=== PATIENT | female | born 1960 | race Caucasian/White ===

== ENCOUNTER 2016-12-04 19:11 | Emergency (ER) | payer MEDICARE ==
[2016-12-04 19:15] VITALS: BP 141/89; PULSE 96; TEMP 98; BMI 23.3
[2016-12-04] MEDS ORDERED: AZITHROMYCIN 250 MG TABLET PO ONE (20:24)
[2016-12-04] MEDS ORDERED: AZITHROMYCIN 250 MG TABLET ONE (20:25)
--- NOTE | 2016-12-04 20:29 | PDOC ---
History of Present Illness - General Chief Complaint: Pain Stated Complaint: PAIN. ACUTE Time Seen by Provider: 12/04/16 19:55 History Source: Patient Exam Limitations: No Limitations - History of Present Illness Initial Comments: 12/04/16 22:27 My chief complaint: Left ear pain left side of face pain and left tongue pain History of present illness: Patient is a 56-year-old female with a history of CAD, asthma, COPD, GERD, anxiety and depression and fnn-ufkuupx-mxmcednte diabetes here today complaining of left ear pain, left side of face pain and left tonsil pain for weeks patient is unable to give specific timing for her complaints. Patient also reports having TMJ. She reports that she really needs something strong for pain. She denies any difficulty swallowing or any difficulty breathing. Timing/Duration: getting worse Severity: moderate Associated Symptoms: reports: other (left tongue pain, left ear pain, ) Past History - Past Medical History Allergies/Adverse Reactions: Allergies Allergy/AdvReac Type Severity Reaction Status Date / Time naproxen Allergy Severe Swelling Verified 12/04/16 19:15 soy Allergy Verified 12/04/16 19:15 Sulfa (Sulfonamide Allergy Rash Verified 12/04/16 19:15 Antibiotics) honey bees Allergy Mild Swelling Uncoded 12/04/16 19:15 shrimp Allergy Mild hives, Uncoded 12/04/16 19:15 itching WALNUTS Allergy Unknown Uncoded 12/04/16 19:15 seafood Allergy get sick Uncoded 12/04/16 19:15 Home Medications: Ambulatory Orders Lisinopril [Prinivil] 20 mg PO DAILY 12/06/14 Sitagliptin Phos/Metformin HCl [Janumet 50-500 mg Tablet] 1 tab PO BID 12/06/14 Canagliflozin [Invokana] 300 mg PO DAILY 09/26/15 Acetaminophen 1,000 mg PO Q8H PRN #1 capsule 12/04/16 Azithromycin [Zithromax 250mg Tablets -] 250 mg PO UTDICT #4 tab 12/04/16 Mag Hydrox/Alh/Smc/Dpha/Lido [Magic Mouthwash *Sjr Formula*] 5 ml MM Q3H PRN # 120 mouthwash 12/04/16 Asthma: Yes Cardiac Disorders: Yes (IRREGULAR HEART BEAT, CAD) CVA: No COPD: Yes Diabetes: Yes GI Disorders: Yes (acid reflux) HTN: Yes Hypercholesterolemia: Yes Psychiatric Problems: Yes (ANXIETY, DEPRESSION.) Seizures: Yes - Surgical History Abdominal Surgery: Yes (EX LAP- left ovary removed) Appendectomy: No Cardiac Surgery: Yes (CATH,) Cholecystectomy: No Lung Surgery: No Neurologic Surgery: No - Immunization History Td Vaccination: Yes TDAP Vaccination: No Immunization Up to Date: Yes - Suicide/Smoking/Psychosocial Hx Smoking Status: No Smoking History: Never smoked Years of Tobacco Use: 0 Have you smoked in the past 12 months: No Number of Cigarettes Smoked Daily: 0 Cigars Per Day: 0 Hx Alcohol Use: No Drug/Substance Use Hx: No Substance Use Type: None Hx Substance Use Treatment: No Review of Systems - Review of Systems Able to Perform ROS?: Yes Constitutional: No: Symptoms Reported HEENTM: Yes: Ear Pain (left ear), Throat Pain, Other (tongue tenderness left lateral ) Respiratory: Yes: Cough (dry ) Cardiac (ROS): No: Symptoms Reported ABD/GI: No: Symptoms Reported : No: Symptoms Reported Musculoskeletal: No: Symptoms Reported Integumentary: No: Symptoms Reported Neurological: No: Symptoms reported *Physical Exam - Vital Signs Last Vital Signs Temp Pulse Resp BP Pulse Ox 98.0 F 96 H 20 141/89 97 12/04/16 19:12 12/04/16 19:12 12/04/16 19:12 12/04/16 19:12 12/04/16 19:12 - Physical Exam General Appearance: Yes: Appropriately Dressed HEENT: positive: TMs Normal, Pharyngeal Erythema, Other (left lateral tongue tenderness, no clicking, TMJ b/l, no tooth decay or edema of gums left lower and upper). negative: Tonsillar Exudate, Tonsillar Erythema Neck: positive: Lymphadenopathy (L). negative: Lymphadenopathy (R) Respiratory/Chest: positive: Lungs Clear, Normal Breath Sounds. negative: Chest Tender, Respiratory Distress Cardiovascular: positive: Regular Rhythm, Regular Rate, S1, S2 Medical Decision Making - Medical Decision Making 12/04/16 22:29 Patient is a 56-year-old female with a history of CAD, asthma, COPD, GERD, anxiety and depression and vyu-yecxbxx-ccvfpoban diabetes here today complaining of left ear pain, left side of face pain and left tonsil pain for weeks patient is unable to give specific timing for her complaints. Patient also reports having TMJ. She reports that she really needs something strong for pain. She denies any difficulty swallowing or any difficulty breathing. tongue lesion left lateral pharyngitis PLAN: acetaminophen 1000 mg po now than every 8 hrs prn pain azithromycin 500 mg po now than 250 mg daily for following 4 days follow up with dentist and ENT as soon as possible magic mouthwash apply to tongue lesion 5 ml every 3 hrs as needed for pain 12/04/16 22:30 12/04/16 22:33 *DC/Admit/Observation/Transfer Diagnosis at time of Disposition: Lesion of tongue, Cough in adult Pharyngitis Qualifiers: Pharyngitis/tonsillitis etiology: unspecified etiology Qualified Code(s): J02.9 - Acute pharyngitis, unspecified - Discharge Dispostion Disposition: HOME Condition at time of disposition: Stable - Prescriptions Prescriptions: Acetaminophen 1,000 mg PO Q8H PRN #1 capsule PRN Reason: Pain Mag Hydrox/Alh/Smc/Dpha/Lido [Magic Mouthwash *Sjr Formula*] 5 ml MM Q3H PRN # 120 mouthwash PRN Reason: Oral Pain/Mouth Sores Azithromycin [Zithromax 250mg Tablets -] 250 mg PO UTDICT #4 tab - Referrals Referrals: Donte Sanderson MD [Primary Care Provider] - Derrick Hamilton MD [Staff Physician] - - Patient Instructions Additional Instructions: Drink a lot a fluids and rest Follow-up with your primary care provider within the next few days Follow up with Ear, nose and throat MD and your dentist to check tongue lesions Return to emergency room if any difficulty breathing or any new symptoms develop Patient voiced understanding of discharge instructions and all questions were answered Thank you for choosing [facility] to major medical needs today - Post Discharge Activity
== END 2016-12-04 20:45 | disposition home or self-care (01) ==
LOC: JERFT 19:11
DX: K13.70 Unspecified lesions of oral mucosa (principal); R05 Cough; J02.9 Acute pharyngitis, unspecified; J44.9 Chronic obstructive pulmonary disease, unspecified; K21.9 Gastro-esophageal reflux disease without esophagitis; I25.10 Atherosclerotic heart disease of native coronary artery without angina pectoris; F41.8 Other specified anxiety disorders
CPT/HCPCS: 99281-25

== ENCOUNTER 2016-12-23 16:06 | Emergency (ER) | payer MEDICARE ==
[2016-12-23 16:15] VITALS: BMI 22.9
--- NOTE | 2016-12-23 17:04 | PDOC ---
History of Present Illness - General Chief Complaint: Pain Stated Complaint: eval, Time Seen by Provider: 12/23/16 17:04 - History of Present Illness Initial Comments: 12/23/16 17:04 Ms. Merchant is a 56 year old female with a significant past medical history of CAD , mitral valve prolapse, HTN, HLD, DM II, degenerative disc disease, anxiety, fibromyalgia, seizures, depression who presents to the emergency department complaining of a several day history of burning during urination and vaginal itchiness. She suspects her herpes is acting up. The patient denies chest pain, shortness of breath, headache and dizziness. Denies fever, chills, nausea, vomit, diarrhea and constipation. Endorses dysuria with increased frequency and urgency. Allergies: Naproxen and Sulfa Past surgical history: Tonsillectomy and salpingo-oopherectomy (Left) 12/23/16 18:29 Past History - Past Medical History Allergies/Adverse Reactions: Allergies Allergy/AdvReac Type Severity Reaction Status Date / Time naproxen Allergy Severe Swelling Verified 12/23/16 16:08 soy Allergy Verified 12/23/16 16:08 Sulfa (Sulfonamide Allergy Rash Verified 12/23/16 16:08 Antibiotics) honey bees Allergy Mild Swelling Uncoded 12/23/16 16:08 shrimp Allergy Mild hives, Uncoded 12/23/16 16:08 itching WALNUTS Allergy Unknown Uncoded 12/23/16 16:08 seafood Allergy get sick Uncoded 12/23/16 16:08 Home Medications: Ambulatory Orders Lisinopril [Prinivil] 20 mg PO DAILY 12/06/14 Canagliflozin [Invokana] 300 mg PO DAILY 09/26/15 Gabapentin [Neurontin -] 300 mg PO HS 12/23/16 Sitagliptin Phos/Metformin HCl [Janumet 50-1,000 mg Tablet] 1 each PO BID Valacyclovir HCl [Valtrex -] 500 mg PO BID #6 tablet 12/23/16 Asthma: Yes Cardiac Disorders: Yes (IRREGULAR HEART BEAT, CAD) CVA: No COPD: Yes Diabetes: Yes GI Disorders: Yes (acid reflux) HTN: Yes Hypercholesterolemia: Yes Psychiatric Problems: Yes (ANXIETY, DEPRESSION.) Seizures: Yes - Surgical History Abdominal Surgery: Yes (EX LAP- left ovary removed) Appendectomy: No Cardiac Surgery: Yes (CATH,) Cholecystectomy: No Lung Surgery: No Neurologic Surgery: No - Immunization History Td Vaccination: Yes TDAP Vaccination: No Immunization Up to Date: Yes - Suicide/Smoking/Psychosocial Hx Smoking Status: No Smoking History: Never smoked Years of Tobacco Use: 0 Have you smoked in the past 12 months: No Number of Cigarettes Smoked Daily: 0 Cigars Per Day: 0 Information on smoking cessation initiated: No Hx Alcohol Use: No Drug/Substance Use Hx: No Substance Use Type: None Hx Substance Use Treatment: No Review of Systems - Review of Systems Comments:: 12/23/16 17:04 GENERAL/CONSTITUTIONAL: No fever or chills. No weakness. HEAD, EYES, EARS, NOSE AND THROAT: No change in vision. No ear pain or discharge. No sore throat. CARDIOVASCULAR: No chest pain or shortness of breath RESPIRATORY: No cough, wheezing, or hemoptysis. GASTROINTESTINAL: No nausea, vomiting, diarrhea or constipation. GENITOURINARY: +Recent dysuria with increased frequency MUSCULOSKELETAL: No joint or muscle swelling or pain. No neck or back pain. SKIN: +Vaginal "cuts" reported to labia NEUROLOGIC: No headache, vertigo, loss of consciousness, or change in strength/ sensation. ENDOCRINE: No increased thirst. No abnormal weight change HEMATOLOGIC/LYMPHATIC: No anemia, easy bleeding, or history of blood clots. ALLERGIC/IMMUNOLOGIC: No hives or skin allergy. *Physical Exam - Vital Signs Last Vital Signs Temp Pulse Resp BP Pulse Ox 98.3 F 100 H 18 107/90 100 12/23/16 16:12 12/23/16 16:12 12/23/16 16:12 12/23/16 16:12 12/23/16 16:12 - Physical Exam Comments: 12/23/16 17:04 GENERAL: Awake, alert, and fully oriented, in no acute distress HEAD: No signs of trauma, normocephalic, atraumatic EYES: PERRLA, EOMI, sclera anicteric, conjunctiva clear ENT: Auricles normal inspection, hearing grossly normal, nares patent, oropharynx clear without exudates. Moist mucosa NECK: Normal ROM, supple, no lymphadenopathy, JVD, or masses LUNGS: No distress, speaks full sentences, clear to auscultation bilaterally HEART: Regular rate and rhythm, normal S1 and S2, no murmurs, rubs or gallops, peripheral pulses normal and equal bilaterally. ABDOMEN: Soft, nontender, normoactive bowel sounds. No guarding, no rebound. No masses EXTREMITIES: Normal inspection, Normal range of motion, no edema. No clubbing or cyanosis. NEUROLOGICAL: Cranial nerves II through XII grossly intact. Normal speech, normal gait, no focal sensorimotor deficits SKIN: Warm, Dry, normal turgor VAGINAL: Legions consistent with herpes noted to Left labia, thick white exudate noted as well as R ovarian tenderness during bimanual exam. ED Treatment Course - LABORATORY CBC & Chemistry Diagram: 12/23/16 18:00 12/23/16 18:00 Medical Decision Making - Medical Decision Making 12/23/16 18:29 Patient presents complaining of vaginal itchyness with urinary pain and frequency. Suspects she may have UTI and that her "herpes is acting up." On exam peggy exudate significant of acute yeast infection noted, treated with diflucan. Bimanual exam revealed tender R ovary, pelvic US ordered for follow- up. UA ordered as well. 12/23/16 19:[address] over to Dr[address] Raymundo for further workup *DC/Admit/Observation/Transfer Diagnosis at time of Disposition: Yeast infection - Discharge Dispostion Disposition: HOME - Prescriptions Prescriptions: Valacyclovir HCl [Valtrex -] 500 mg PO BID #6 tablet - Referrals Referrals: Donte Sanderson MD [Primary Care Provider] - - Patient Instructions Printed Discharge Instructions: DI for Vaginal Yeast Infection Additional Instructions: Please take valtrex 500 mg twice per day for 3 days as presecribed. Please follow up with your primary care provider within the week. If you have chest pain, shortness of breath, or any new/worsening symptoms please come back to the hospital immediately.
[2016-12-23] MEDS ORDERED: FLUCONAZOLE 50 MG TABLET PO ONE (17:47)
[2016-12-23] MEDS ORDERED: valACYclovir HCL 500 MG TABLET (FP) PO ONE (17:56)
[2016-12-23] MEDS ORDERED: FLUCONAZOLE 100 MG TABLET (UD) ONE (17:59)
[2016-12-23 18:23] LABS: BASOPHIL 0.8 % (0-2.0); EOSINOPHIL 0.9 % (0-4.5); MCH 29.6 pg (25.7-33.7); MCHC 33.5 g/dl (32.0-36.0); MEAN CELL VOLUME 88.6 fl (80-96); MEAN PLT VOLUME 7.6 fl (7.5-11.1); NEUTROPHILS 55.8 % (42.8-82.8); PLATELET COUNT 153 K/MM3 (134-434); RDW 12.7 % (11.6-15.6); WHITE BLOOD COUNT 4.4 K/mm3 (4.0-10.0)
[2016-12-23 18:27] LABS: URINE APPEARANCE CLEAR; URINE BILIRUBIN NEGATIVE (NEGATIVE); URINE BLOOD NEGATIVE (NEGATIVE); URINE COLOR AMBER; URINE GLUCOSE (UA) 3+ (NEGATIVE); URINE KETONE NEGATIVE (NEGATIVE); URINE NITRITE NEGATIVE (NEGATIVE); URINE PROTEIN NEGATIVE (NEGATIVE); URINE UROBILINOGEN NEGATIVE mg/dL (0.2-1.0)
[2016-12-23 19:15] LABS: ALBUMIN 4.6 g/dl (3.4-5.0); ALK PHOS 54 U/L (45-117); ANION GAP 11 (8-16); BILIRUBIN,TOTAL 0.9 mg/dL (0.2-1.0); CALCIUM 10.2 mg/dL (8.5-10.1); CO2 27 mmol/L (21-32); CREATININE 0.7 mg/dL (0.55-1.02); GLUCOSE,RANDOM 117 mg/dL (74-106); SGOT/AST 62 U/L (15-37); SGPT/ALT 97 U/L (12-78); TOT PROT 8.4 g/dl (6.4-8.2)
--- NOTE | 2016-12-23 19:23 | PDOC ---
*Physical Exam - Vital Signs Last Vital Signs Temp Pulse Resp BP Pulse Ox 98.3 F 100 H 18 107/90 100 12/23/16 16:12 12/23/16 16:12 12/23/16 16:12 12/23/16 16:12 12/23/16 16:12 ED Treatment Course - LABORATORY CBC & Chemistry Diagram: 12/23/16 18:00 12/23/16 18:00 - ADDITIONAL ORDERS Additional order review: Laboratory Results 12/23/16 12/23/16 18:00 18:00 Sodium 136 Potassium 4.3 Chloride 98 Carbon Dioxide 27 Anion Gap 11 BUN 18 Creatinine 0.7 Creat Clearance w eGFR > 60 Random Glucose 117 H D Calcium 10.2 H Total Bilirubin 0.9 AST 62 H ALT 97 H Alkaline Phosphatase 54 D Total Protein 8.4 H Albumin 4.6 Urine Color Megan Urine Appearance Clear Urine pH 5.0 Urine Protein Negative Urine Glucose (UA) 3+ H Urine Ketones Negative Urine Blood Negative Urine Nitrite Negative Urine Bilirubin Negative Urine Urobilinogen Negative 12/23/16 18:00 RBC 4.77 MCV 88.6 MCHC 33.5 RDW 12.7 MPV 7.6 Neutrophils % 55.8 D Lymphocytes % 28.8 D Monocytes % 13.7 H Eosinophils % 0.9 Basophils % 0.8 - Medications Given in the ED: ED Medications Discontinued Medications Generic Name Dose Route Start Last Admin Trade Name Freq PRN Reason Stop Dose Admin Fluconazole 150 mg 12/23/16 17:47 12/23/16 18:01 Diflucan - PO 12/23/16 17:48 150 mg ONCE ONE Administration Valacyclovir HCl 500 mg 12/23/16 17:56 12/23/16 18:10 Valtrex - PO 12/23/16 17:57 500 mg ONCE ONE Administration Medical Decision Making - Medical Decision Making 12/23/16 19:24 56 year old female with a significant past medical history of CAD, mitral valve prolapse, HTN, HLD, DM II, degenerative disc disease, anxiety, fibromyalgia, seizures, depression who presents to the emergency department complaining of a several day history of burning during urination and vaginal itchiness. Patient also having RLQ pain. Pending ultrasound 12/23/16 19:40 Bladder ultrasound unremarkable. Patient stable for discharge. *DC/Admit/Observation/Transfer Diagnosis at time of Disposition: Yeast infection - Discharge Dispostion Disposition: HOME - Prescriptions Prescriptions: Valacyclovir HCl [Valtrex -] 500 mg PO BID #6 tablet - Referrals Referrals: Donte Sanderson MD [Primary Care Provider] - - Patient Instructions Printed Discharge Instructions: DI for Vaginal Yeast Infection Additional Instructions: Please take valtrex 500 mg twice per day for 3 days as presecribed. Please follow up with your primary care provider within the week. If you have chest pain, shortness of breath, or any new/worsening symptoms please come back to the hospital immediately.
[2016-12-23 20:31] VITALS: BP 105/63; PULSE 85; TEMP 98.6
[2016-12-23 22:45] LABS: URINE LEUK ESTERASE Negative (NEGATIVE)
== END 2016-12-23 20:29 | disposition home or self-care (01) ==
LOC: JER 16:06
DX: B37.9 Candidiasis, unspecified (principal); I10 Essential (primary) hypertension; E11.9 Type 2 diabetes mellitus without complications; F41.9 Anxiety disorder, unspecified; I25.10 Atherosclerotic heart disease of native coronary artery without angina pectoris
CPT/HCPCS: 36415; 76856-TC; 80053; 81003; 85025; 99282-25

== ENCOUNTER 2016-12-25 10:17 | Emergency (ER) | payer MEDICARE ==
[2016-12-25 10:30] VITALS: TEMP 98.1; BMI 22.9
--- NOTE | 2016-12-25 10:51 | PDOC ---
History of Present Illness - General History Source: Patient Exam Limitations: No Limitations - History of Present Illness Initial Comments: 12/25/16 11:18 The patient is a 56 year old female, with a significant past medical history of CAD, mitral valve prolapse, HTN, HLD, DM II, degenerative disc disease, anxiety , fibromyalgia, seizures, depression, HSV who presents to the emergency department worsening dysuria. Patient was seen in ED on 12/23/2016 for the same complaint and was discharged home with Valtrex and Diflucan. Patient reports worsening dysuria with associated R lower back pain and nausea. Patient reports burning, constant pain, 6/10 in severity. Patient denies any frequency, urgency or hematuria. She denies fever, chills, vomit, diarrhea or constipation. Patient denies sick contacts or recent travel. She denies chest pain, headache or dizziness. Allergies: See chart Past surgical history: Tonsillectomy and L oophorectomy Social history: PCP: Dr. Sanderson <Tierra Knight - Last Filed: 12/25/16 11:18> <Hayde Haro - Last Filed: 12/25/16 14:46> - General Chief Complaint: Pain Stated Complaint: PELVIC PAIN/BURNING URINATION Time Seen by Provider: 12/25/16 10:40 Past History <Tierra Knight - Last Filed: 12/25/16 11:18> - Past Medical History Asthma: Yes Cardiac Disorders: Yes (IRREGULAR HEART BEAT, CAD) CVA: No COPD: Yes Diabetes: Yes GI Disorders: Yes (acid reflux) HTN: Yes Hypercholesterolemia: Yes Psychiatric Problems: Yes (ANXIETY, DEPRESSION.) Seizures: Yes - Surgical History Abdominal Surgery: Yes (EX LAP- left ovary removed) Appendectomy: No Cardiac Surgery: Yes (CATH,) Cholecystectomy: No Lung Surgery: No Neurologic Surgery: No - Immunization History Td Vaccination: Yes TDAP Vaccination: No Immunization Up to Date: Yes - Suicide/Smoking/Psychosocial Hx Smoking Status: No Smoking History: Never smoked Years of Tobacco Use: 0 Have you smoked in the past 12 months: No Number of Cigarettes Smoked Daily: 0 Cigars Per Day: 0 Information on smoking cessation initiated: No Hx Alcohol Use: No Drug/Substance Use Hx: No Substance Use Type: None Hx Substance Use Treatment: No <Hayde Haro - Last Filed: 12/25/16 14:46> - Past Medical History Allergies/Adverse Reactions: Allergies Allergy/AdvReac Type Severity Reaction Status Date / Time naproxen Allergy Severe Swelling Verified 12/25/16 10:23 soy Allergy Verified 12/25/16 10:23 Sulfa (Sulfonamide Allergy Rash Verified 12/25/16 10:23 Antibiotics) honey bees Allergy Mild Swelling Uncoded 12/25/16 10:23 shrimp Allergy Mild hives, Uncoded 12/25/16 10:23 itching WALNUTS Allergy Unknown Uncoded 12/25/16 10:23 ants Allergy Uncoded 12/25/16 10:23 seafood Allergy get sick Uncoded 12/25/16 10:23 Home Medications: Ambulatory Orders Lisinopril [Prinivil] 20 mg PO DAILY 12/06/14 Canagliflozin [Invokana] 300 mg PO DAILY 09/26/15 Sitagliptin Phos/Metformin HCl [Janumet 50-1,000 mg Tablet] 1 each PO BID Cephalexin Monohydrate [Keflex -] 500 mg PO BID #14 capsule 12/25/16 Zolpidem Tartrate [Ambien] 5 mg PO HS PRN 12/25/16 Review of Systems - Review of Systems Able to Perform ROS?: Yes Comments:: 12/25/16 11:18 GENERAL/CONSTITUTIONAL: No fever or chills. No weakness. HEAD, EYES, EARS, NOSE AND THROAT: No change in vision. No ear pain or discharge. No sore throat. GASTROINTESTINAL: + nausea. No vomiting, diarrhea or constipation. GENITOURINARY: + dysuria. No frequency, or change in urination. CARDIOVASCULAR: No chest pain or shortness of breath. RESPIRATORY: No cough, wheezing, or hemoptysis. MUSCULOSKELETAL: No joint or muscle swelling or pain. No neck or back pain. SKIN: No rash NEUROLOGIC: No headache, vertigo, loss of consciousness, or change in strength/ sensation. ENDOCRINE: No increased thirst. No abnormal weight change. HEMATOLOGIC/LYMPHATIC: No anemia, easy bleeding, or history of blood clots. ALLERGIC/IMMUNOLOGIC: No hives or skin allergy. <Tierra Knight - Last Filed: 12/25/16 11:18> *Physical Exam - Vital Signs Last Vital Signs Temp Pulse Resp BP Pulse Ox 98.1 F 92 H 18 105/75 98 10/11/17 10:21 12/25/16 10:21 12/25/16 10:21 12/25/16 10:21 12/25/16 10:21 <Tierra Knight - Last Filed: 12/25/16 11:18> - Vital Signs Last Vital Signs Temp Pulse Resp BP Pulse Ox 98.1 F 92 H 18 105/75 98 12/25/16 10:21 12/25/16 10:21 12/25/16 10:21 12/25/16 10:21 12/25/16 10:21 - Physical Exam Comments: GENERAL: Awake, alert, and fully oriented, in no acute distress HEAD: No signs of trauma EYES: PERRLA, EOMI, sclera anicteric, conjunctiva clear ENT: Auricles normal inspection, hearing grossly normal, nares patent, oropharynx clear without exudates. Moist mucosa NECK: Normal ROM, supple, no lymphadenopathy, JVD, or masses LUNGS: Breath sounds equal, clear to auscultation bilaterally. No wheezes, and no crackles HEART: Regular rate and rhythm, normal S1 and S2, no murmurs, rubs or gallops ABDOMEN: Soft, nontender, normoactive bowel sounds. No guarding, no rebound. No masses. +R CVAT. EXTREMITIES: Normal range of motion, no edema. No clubbing or cyanosis. No cords, erythema, or tenderness NEUROLOGICAL: Cranial nerves II through XII grossly intact. Normal speech, normal gait SKIN: Warm, Dry, normal turgor, no rashes or lesions noted. <Hayde Haro - Last Filed: 12/25/16 14:46> Medical Decision Making - Medical Decision Making 12/25/16 14:45 CT and lab results d/w patient. Will treat UTI with keflex (no prior cultures available). UCx pending. <Hayde Haro - Last Filed: 12/25/16 14:46> *DC/Admit/Observation/Transfer - Attestations Scribe Attestion: 12/25/16 11:18 Documentation prepared by Tierra Knight, acting as medical secretary receptionist for Hayde Haro MD <Tierra Knight - Last Filed: 12/25/16 11:18> - Discharge Dispostion Admit: No <Hayde Haro - Last Filed: 12/25/16 14:46> Diagnosis at time of Disposition: Urinary tract infection Qualifiers: Urinary tract infection type: acute cystitis Hematuria presence: without hematuria Qualified Code(s): N30.00 - Acute cystitis without hematuria - Discharge Dispostion Disposition: HOME Condition at time of disposition: Stable - Prescriptions Prescriptions: Cephalexin Monohydrate [Keflex -] 500 mg PO BID #14 capsule - Referrals Referrals: Donte Sanderson MD [Primary Care Provider] - - Patient Instructions Printed Discharge Instructions: DI for Urinary Tract Infection (UTI)
[2016-12-25 11:57] LABS: URINE APPEARANCE SLCLOUDY; URINE BILIRUBIN NEGATIVE (NEGATIVE); URINE BLOOD 1+ (NEGATIVE); URINE COLOR LTYELLOW; URINE GLUCOSE (UA) 3+ (NEGATIVE); URINE KETONE NEGATIVE (NEGATIVE); URINE NITRITE NEGATIVE (NEGATIVE); URINE PROTEIN NEGATIVE (NEGATIVE); URINE UROBILINOGEN NEGATIVE mg/dL (0.2-1.0)
[2016-12-25 12:07] LABS: URINE BACTERIA RARE /hpf (NONE SEEN); URINE MUCUS RARE; URINE RBC 1 /hpf (0-3); URINE WBC 16 /hpf (3-5)
[2016-12-25 13:53] LABS: URINE LEUK ESTERASE TRACE (NEGATIVE)
[2016-12-25] MEDS ORDERED: CEPHALEXIN MONOHYDRATE 500 MG CAPSULE (UD) PO ONE (14:17)
[2016-12-25] MEDS ORDERED: FLUCONAZOLE 50 MG TABLET PO ONE (14:32)
[2016-12-25] MEDS ORDERED: CEPHALEXIN MONOHYDRATE 250 MG CAPSULE (FP) ONE (14:46)
[2016-12-25] MEDS ORDERED: FLUCONAZOLE 100 MG TABLET (UD) ONE (14:46)
[2016-12-25 14:57] VITALS: BP 132/67; PULSE 76
== END 2016-12-25 14:57 | disposition home or self-care (01) ==
LOC: JER 10:17
DX: N30.00 Acute cystitis without hematuria (principal); I25.10 Atherosclerotic heart disease of native coronary artery without angina pectoris; I10 Essential (primary) hypertension; E78.5 Hyperlipidemia, unspecified; E11.9 Type 2 diabetes mellitus without complications; F41.9 Anxiety disorder, unspecified; R56.9 Unspecified convulsions; J44.9 Chronic obstructive pulmonary disease, unspecified; K21.9 Gastro-esophageal reflux disease without esophagitis; F41.8 Other specified anxiety disorders
CPT/HCPCS: 74176; 81003; 81015; 87086; 87186; 99282-25

== ENCOUNTER 2017-01-27 11:56 | Emergency (ER) | payer MEDICARE ==
[2017-01-27 12:03] VITALS: BP 134/83; PULSE 94; TEMP 98.3; BMI 23.3
[2017-01-27] MEDS ORDERED: diphenhydrAMINE HCL 25 MG CAPSULE (FP) PO ONE ×4 (13:01→14:58)
[2017-01-27] MEDS ORDERED: predniSONE 20 MG TABLET (UD) PO ONE ×2 (13:01→14:51)
[2017-01-27] MEDS ORDERED: FLUCONAZOLE 50 MG TABLET PO ONE (13:02)
[2017-01-27] MEDS ORDERED: predniSONE 20 MG TABLET (UD) ONE ×2 (13:02→14:58)
[2017-01-27] MEDS ORDERED: FLUCONAZOLE 100 MG TABLET (UD) ONE (13:02)
--- NOTE | 2017-01-27 13:02 | PDOC ---
History of Present Illness - General Chief Complaint: Allergic Reaction Stated Complaint: ALLERGIC REACTION Time Seen by Provider: 01/27/17 12:35 History Source: Patient Exam Limitations: No Limitations Past History - Past Medical History Allergies/Adverse Reactions: Allergies Allergy/AdvReac Type Severity Reaction Status Date / Time naproxen Allergy Severe Swelling Verified 01/27/17 11:58 soy Allergy Verified 01/27/17 11:58 Sulfa (Sulfonamide Allergy Rash Verified 01/27/17 11:58 Antibiotics) honey bees Allergy Mild Swelling Uncoded 01/27/17 11:58 shrimp Allergy Mild hives, Uncoded 01/27/17 11:58 itching WALNUTS Allergy Unknown Uncoded 01/27/17 11:58 ants Allergy Uncoded 01/27/17 11:58 seafood Allergy get sick Uncoded 01/27/17 11:58 Home Medications: Ambulatory Orders Lisinopril [Prinivil] 20 mg PO DAILY 12/06/14 Canagliflozin [Invokana] 300 mg PO DAILY 09/26/15 Sitagliptin Phos/Metformin HCl [Janumet 50-1,000 mg Tablet] 1 each PO BID Zolpidem Tartrate [Ambien] 5 mg PO HS PRN 12/25/16 Diphenhydramine HCl [Benadryl -] 25 mg PO Q8H #21 capsule 01/27/17 Fluconazole [Diflucan -] 100 mg PO ONCE #1 tablet 01/27/17 Hydrocortisone 2.5% Topical Cr [Anusol-Hc -] 1 applic TP DAILY PRN #60 gm Prednisone [Deltasone -] 40 mg PO DAILY #10 tablet 01/27/17 Asthma: Yes Cardiac Disorders: Yes (IRREGULAR HEART BEAT, CAD) CVA: No COPD: Yes Diabetes: Yes GI Disorders: Yes (acid reflux) HTN: Yes Hypercholesterolemia: Yes Psychiatric Problems: Yes (ANXIETY.) Seizures: Yes - Surgical History Abdominal Surgery: Yes (EX LAP- left ovary removed) Appendectomy: No Cardiac Surgery: Yes (CATH,) Cholecystectomy: No Lung Surgery: No Neurologic Surgery: No - Immunization History Td Vaccination: Yes TDAP Vaccination: No Immunization Up to Date: Yes - Suicide/Smoking/Psychosocial Hx Smoking Status: No Smoking History: Never smoked Years of Tobacco Use: 0 Have you smoked in the past 12 months: No Number of Cigarettes Smoked Daily: 0 Cigars Per Day: 0 Information on smoking cessation initiated: No Hx Alcohol Use: No Drug/Substance Use Hx: No Substance Use Type: None Hx Substance Use Treatment: No *Physical Exam - Vital Signs Last Vital Signs Temp Pulse Resp BP Pulse Ox 98.3 F 94 H 18 134/83 100 01/27/17 11:59 01/27/17 11:59 01/27/17 11:59 01/27/17 11:59 01/27/17 11:59 *DC/Admit/Observation/Transfer Diagnosis at time of Disposition: Yeast infection Allergic reaction Qualifiers: Encounter type: initial encounter Qualified Code(s): T78.40XA - Allergy, unspecified, initial encounter - Discharge Dispostion Disposition: HOME Condition at time of disposition: Improved Admit: No - Prescriptions Prescriptions: Diphenhydramine HCl [Benadryl -] 25 mg PO Q8H #21 capsule Fluconazole [Diflucan -] 100 mg PO ONCE #1 tablet Hydrocortisone 2.5% Topical Cr [Anusol-Hc -] 1 applic TP DAILY PRN #60 gm PRN Reason: itching Prednisone [Deltasone -] 40 mg PO DAILY #10 tablet - Referrals Referrals: Donte Sanderson MD [Primary Care Provider] - Derrick Hamilton MD [Staff Physician] - - Patient Instructions Printed Discharge Instructions: DI for General Allergic Reactions Additional Instructions: You had an allergic reaction to something in your environment (medication, food , environmental). You were prescribed prednisone. Please take 40mg for 5 days to help you with your symptoms. You may also take 25mg of benadryl every 8 hours as needed[address] Do not drive after taking this medication as it may make you sleepy. You may also use the hydrocortisone cream on the hives to help with swelling. Please monitor your blood sugar this week as prednisone can elevate your sugars. Please follow up with Dr. Hamilton for allergy testing this week. Avoid Lyrica, nuts and strawberries as we are unsure what caused your reaction today. Please take the diflucan on Friday for your yeast infection Return to the ED if you have shortness of breath, chest pain, difficulty swallowing, or any changes in your symptoms. - Post Discharge Activity
[2017-01-27] MEDS ORDERED: methylPREDNISolone NA SUCC 40 MG/1 ML VIAL IVPUSH ONE (13:23)
[2017-01-27] MEDS ORDERED: SODIUM CHLORIDE 1,000 ML IV STA (13:24)
[2017-01-27] MEDS ORDERED: methylPREDNISolone NA SUCC 125 MG/2 ML VIAL ONE (13:27)
== END 2017-01-27 15:02 | disposition home or self-care (01) ==
LOC: JERFT 11:56
PROC: 3E0337Z Introduction of Electrolytic and Water Balance Substance into Peripheral Vein, Percutaneous Approach (ICD-10-PCS; principal; 2017-01-27)
PROC: 3E033GC Introduction of Other Therapeutic Substance into Peripheral Vein, Percutaneous Approach (ICD-10-PCS; 2017-01-27)
PROC: 3E0333Z Introduction of Anti-inflammatory into Peripheral Vein, Percutaneous Approach (ICD-10-PCS; 2017-01-27)
DX: T78.40XA Allergy, unspecified, initial encounter (principal); L50.0 Allergic urticaria; B37.9 Candidiasis, unspecified; J45.909 Unspecified asthma, uncomplicated; J44.9 Chronic obstructive pulmonary disease, unspecified; Z79.84 Long term (current) use of oral hypoglycemic drugs; I10 Essential (primary) hypertension; E78.00 Pure hypercholesterolemia, unspecified; F41.9 Anxiety disorder, unspecified; Z86.69 Personal history of other diseases of the nervous system and sense organs; Z98.61 Coronary angioplasty status
CPT/HCPCS: 96361; 96374; 96375; 99281-25

== ENCOUNTER 2017-09-04 22:55 | Emergency (ER) | payer MEDICARE ==
[2017-09-04 23:02] VITALS: BP 110/63; PULSE 86; TEMP 97.9; BMI 22.8
--- NOTE | 2017-09-05 00:15 | PDOC ---
History of Present Illness - General Chief Complaint: Toothache Stated Complaint: THROAT PAIN, FACIAL PAIN Time Seen by Provider: 09/04/17 23:39 - History of Present Illness Initial Comments: 09/05/17 00:15 57 year old female c/o throat pain, right side gum pain and nasal congestion. denies fever/ chills. " i just want some antibiotics. they usually give me cipro." Past History - Past Medical History Allergies/Adverse Reactions: Allergies Allergy/AdvReac Type Severity Reaction Status Date / Time naproxen Allergy Severe Swelling Verified 09/04/17 23:02 soy Allergy Verified 09/04/17 23:02 Sulfa (Sulfonamide Allergy Rash Verified 09/04/17 23:02 Antibiotics) honey bees Allergy Mild Swelling Uncoded 09/04/17 23:02 shrimp Allergy Mild hives, Uncoded 09/04/17 23:02 itching WALNUTS Allergy Unknown Uncoded 09/04/17 23:02 ants Allergy Uncoded 09/04/17 23:02 seafood Allergy get sick Uncoded 09/04/17 23:02 Home Medications: Ambulatory Orders Lisinopril [Prinivil] 20 mg PO DAILY 12/06/14 Canagliflozin [Invokana] 300 mg PO DAILY 09/26/15 Sitagliptin Phos/Metformin HCl [Janumet 50-1,000 mg Tablet] 1 each PO BID Zolpidem Tartrate [Ambien] 5 mg PO HS PRN 12/25/16 Diphenhydramine HCl [Benadryl -] 25 mg PO Q8H #21 capsule 01/27/17 Fluconazole [Diflucan -] 100 mg PO ONCE #1 tablet 01/27/17 Hydrocortisone 2.5% Topical Cr [Anusol-Hc -] 1 applic TP DAILY PRN #60 gm predniSONE [Deltasone -] 40 mg PO DAILY #10 tablet 01/27/17 Asthma: Yes Cardiac Disorders: Yes (IRREGULAR HEART BEAT, CAD) CVA: No COPD: Yes Diabetes: Yes (NIDDM) GI Disorders: Yes (acid reflux) HTN: Yes Hypercholesterolemia: Yes Psychiatric Problems: Yes (ANXIETY.) Seizures: Yes - Surgical History Abdominal Surgery: Yes (EX LAP- left ovary removed) Appendectomy: No Cardiac Surgery: Yes (CATH,) Cholecystectomy: No Lung Surgery: No Neurologic Surgery: No - Immunization History Td Vaccination: Yes TDAP Vaccination: No Immunization Up to Date: Yes - Suicide/Smoking/Psychosocial Hx Smoking Status: No Smoking History: Never smoked Years of Tobacco Use: 0 Have you smoked in the past 12 months: No Number of Cigarettes Smoked Daily: 0 Cigars Per Day: 0 Information on smoking cessation initiated: No Hx Alcohol Use: No Drug/Substance Use Hx: No Substance Use Type: None Hx Substance Use Treatment: No *Physical Exam - Vital Signs Last Vital Signs Temp Pulse Resp BP Pulse Ox 97.9 F 86 18 110/63 97 09/04/17 22:59 09/04/17 22:59 09/04/17 22:59 09/04/17 22:59 09/04/17 22:59 - Physical Exam General Appearance: Yes: Appropriately Dressed Respiratory/Chest: positive: Lungs Clear, Normal Breath Sounds Gastrointestinal/Abdominal: positive: Normal Bowel Sounds, Soft Neurologic: positive: Fully Oriented, Alert, Normal Mood/Affect Medical Decision Making - Medical Decision Making 09/05/17 00:35 patient refusing rapid strep. patient refusing any furthr exam. requesting physcian in charge, patient reports that " they usually give me cipro for this" *DC/Admit/Observation/Transfer Diagnosis at time of Disposition: URI (upper respiratory infection) Qualifiers: URI type: unspecified viral URI Qualified Code(s): J06.9 - Acute upper respiratory infection, unspecified - Referrals Referrals: Dotne Sanderson MD [Primary Care Provider] - - Patient Instructions - Post Discharge Activity
--- NOTE | 2017-09-05 00:35 | PDOC ---
*Physical Exam - Vital Signs Last Vital Signs Temp Pulse Resp BP Pulse Ox 97.9 F 86 18 110/63 97 09/04/17 22:59 09/04/17 22:59 09/04/17 22:59 09/04/17 22:59 09/04/17 22:59 Medical Decision Making - Medical Decision Making 09/05/17 00:31 agree with care from PERSONAL BANKING REPRESENTATIVE Tony 09/05/17 00:40 Pt was insistent on having things done her way. Refused proper exam and evaluation. Pt then walked out before discharge. *DC/Admit/Observation/Transfer Diagnosis at time of Disposition: URI (upper respiratory infection) - Referrals Referrals: Donte Sanderson MD [Primary Care Provider] - - Patient Instructions - Post Discharge Activity
[2017-09-05] MEDS ORDERED: ACETAMINOPHEN 325 MG TABLET (FP) ONE (00:39)
== END 2017-09-05 00:42 | disposition left against medical advice (07) ==
LOC: JER 22:55
DX: J06.9 Acute upper respiratory infection, unspecified (principal); I25.10 Atherosclerotic heart disease of native coronary artery without angina pectoris; Z98.61 Coronary angioplasty status; I10 Essential (primary) hypertension; E78.00 Pure hypercholesterolemia, unspecified; E11.9 Type 2 diabetes mellitus without complications; Z79.84 Long term (current) use of oral hypoglycemic drugs; F41.9 Anxiety disorder, unspecified; Z86.69 Personal history of other diseases of the nervous system and sense organs; Z88.8 Allergy status to other drugs, medicaments and biological substances; Z91.018 Allergy to other foods
CPT/HCPCS: 99282-25

== ENCOUNTER 2017-12-21 11:19 | Emergency (ER) | payer MEDICARE ==
[2017-12-21 11:54] VITALS: BP 113/66; PULSE 86; TEMP 98.1; BMI 23.1
--- NOTE | 2017-12-21 12:09 | PDOC ---
History of Present Illness - General Chief Complaint: Toothache Stated Complaint: MOUTH IN PAIN Time Seen by Provider: 12/21/17 11:47 History Source: Patient Exam Limitations: No Limitations - History of Present Illness Initial Comments: 12/21/17 12:02 57 yr female with c/o canker sore on her tounge and foul smell. pt denies sore throat of fever. Pt states she has had this in the past. pt has history of gingivitis. Past History - Past Medical History Allergies/Adverse Reactions: Allergies Allergy/AdvReac Type Severity Reaction Status Date / Time naproxen Allergy Severe Swelling Verified 12/21/17 11:47 soy Allergy Verified 12/21/17 11:47 Sulfa (Sulfonamide Allergy Rash Verified 12/21/17 11:47 Antibiotics) honey bees Allergy Mild Swelling Uncoded 12/21/17 11:47 shrimp Allergy Mild hives, Uncoded 12/21/17 11:47 itching WALNUTS Allergy Unknown Uncoded 12/21/17 11:47 ants Allergy Uncoded 12/21/17 11:47 seafood Allergy get sick Uncoded 12/21/17 11:47 Home Medications: Ambulatory Orders Lisinopril [Prinivil] 20 mg PO DAILY 12/06/14 Canagliflozin [Invokana] 300 mg PO DAILY 09/26/15 Sitagliptin Phos/Metformin HCl [Janumet 50-1,000 mg Tablet] 1 each PO BID Zolpidem Tartrate [Ambien] 5 mg PO HS PRN 12/25/16 Hydrocortisone 2.5% Topical Cr [Anusol-Hc -] 1 applic TP DAILY PRN #60 gm Docusate Sodium [Colace] 100 mg PO BID PRN #20 capsule 11/22/17 Methocarbamol [Robaxin -] 500 mg PO BID #14 tablet 11/22/17 Polyethylene Glycol 3350 [Miralax (For Bowel Prep) -] 17 gm PO DAILY #1 bottle 11/22/17 Lidocaine 2% Viscous Oral/Top [Xylocaine 2% Viscous] 1 ml MM Q6H PRN #1 bottle 12/21/17 Penicillin V Potassium [Pen Vee K -] 250 mg PO QID #28 tablet 12/21/17 Asthma: Yes Cardiac Disorders: Yes (IRREGULAR HEART BEAT, CAD) CVA: No COPD: Yes Diabetes: Yes (NIDDM) GI Disorders: Yes (acid reflux) HTN: Yes Hypercholesterolemia: Yes Psychiatric Problems: Yes (ANXIETY.) Seizures: Yes - Surgical History Abdominal Surgery: Yes (EX LAP- left ovary removed) Appendectomy: No Cardiac Surgery: Yes (CATH,) Cholecystectomy: No Lung Surgery: No Neurologic Surgery: No - Immunization History Td Vaccination: Yes TDAP Vaccination: No Immunization Up to Date: Yes - Suicide/Smoking/Psychosocial Hx Smoking Status: No Smoking History: Never smoked Years of Tobacco Use: 0 Have you smoked in the past 12 months: No Number of Cigarettes Smoked Daily: 0 Cigars Per Day: 0 Information on smoking cessation initiated: No Hx Alcohol Use: No Drug/Substance Use Hx: No Substance Use Type: None Hx Substance Use Treatment: No *Physical Exam - Vital Signs Last Vital Signs Temp Pulse Resp BP Pulse Ox 98.1 F 86 18 113/66 97 12/21/17 11:43 12/21/17 11:43 12/21/17 11:43 12/21/17 11:43 12/21/17 11:43 - Physical Exam General Appearance: Yes: Nourished, Appropriately Dressed HEENT: positive: EOMI, FAVIAN, TMs Normal, Pharynx Normal, Other (right side lateral tounge with 2mm ulceration, white center, surrounding erythema ) Neck: positive: Supple Respiratory/Chest: positive: Lungs Clear, Normal Breath Sounds Cardiovascular: positive: Regular Rhythm, Regular Rate Gastrointestinal/Abdominal: positive: Normal Bowel Sounds, Soft Musculoskeletal: positive: Normal Inspection Extremity: positive: Normal Capillary Refill, Normal Inspection, Normal Range of Motion Integumentary: positive: Normal Color, Dry, Warm Neurologic: positive: Fully Oriented, Alert, Normal Mood/Affect, Normal Response , Motor Strength 5/5 Medical Decision Making - Medical Decision Making 12/21/17 12:23 cc: mouth pain, ulcer on the tounge for one week no fever, no sore throats will prescribe penvk pt refused peridex rinse, will prescribe oral lidocaine pt will see her dentist this week, I have discussed the strict follow up instructions that pt must have the oral sore further evaluated *DC/Admit/Observation/Transfer Diagnosis at time of Disposition: Oral ulcer - Discharge Dispostion Disposition: HOME Condition at time of disposition: Good - Prescriptions Prescriptions: Lidocaine 2% Viscous Oral/Top [Xylocaine 2% Viscous] 1 ml MM Q6H PRN #1 bottle PRN Reason: Oral Pain/Mouth Sores Penicillin V Potassium [Pen Vee K -] 250 mg PO QID #28 tablet - Referrals Referrals: Donte Sanderson MD [Primary Care Provider] - - Patient Instructions Additional Instructions: take the penicillin as directed also take tylenol 650mg every 4-6hrs for pain gargle with warm salt water 4-5 times a day please see your dentist this week, as sores in the mouth must be followed closely to make sure there are no cancerous cells return to ER for any worsening symptoms - Post Discharge Activity
== END 2017-12-21 12:24 | disposition home or self-care (01) ==
LOC: JERFT 11:19
DX: K12.1 Other forms of stomatitis (principal); I25.10 Atherosclerotic heart disease of native coronary artery without angina pectoris; Z98.61 Coronary angioplasty status; I10 Essential (primary) hypertension; E11.9 Type 2 diabetes mellitus without complications; Z79.84 Long term (current) use of oral hypoglycemic drugs; E78.00 Pure hypercholesterolemia, unspecified; F41.9 Anxiety disorder, unspecified; Z86.69 Personal history of other diseases of the nervous system and sense organs; Z88.2 Allergy status to sulfonamides; Z91.018 Allergy to other foods; Z91.013 Allergy to seafood
CPT/HCPCS: 99281-25

== ENCOUNTER 2018-01-11 12:28 | Emergency (ER) | payer MEDICARE ==
[2018-01-11 12:35] VITALS: BP 117/78; PULSE 91; TEMP 98.4; BMI 26.5
[2018-01-11 13:08] LABS: URINE APPEARANCE CLEAR; URINE BILIRUBIN NEGATIVE (<2.0 mg/dL); URINE COLOR LTYELLOW; URINE GLUCOSE (UA) 3+ (NEGATIVE); URINE KETONE NEGATIVE (NEGATIVE); URINE LEUK ESTERASE TRACE (NEGATIVE); URINE NITRITE NEGATIVE (NEGATIVE); URINE PROTEIN NEGATIVE (NEGATIVE); URINE UROBILINOGEN NEGATIVE mg/dL (0.2-1.0)
[2018-01-11 13:11] LABS: EPI CELLS RARE /HPF (FEW); URINE BACTERIA RARE /hpf (NONE SEEN); URINE MUCUS RARE
[2018-01-11] MEDS ORDERED: PHENAZOPYRIDINE HCL 100 MG TABLET (FP) PO ONE (13:19)
[2018-01-11] MEDS ORDERED: PHENAZOPYRIDINE HCL 100 MG TABLET (FP) ONE (13:24)
--- NOTE | 2018-01-11 13:26 | PDOC ---
History of Present Illness - General Chief Complaint: Urinary Problem Stated Complaint: PAIN Time Seen by Provider: 01/11/18 12:58 History Source: Patient Exam Limitations: Clinical Condition - History of Present Illness Initial Comments: 01/11/18 13:20 Patient with no sig Past medical history presenting with complain of urinary frequency, dysuria, burning with urination and suprapubic discomfort for 3 days. Denies fever, chills, nausea, vomiting or back pain. Denies any other symptoms Timing/Duration: other (3 days) Past History - Past Medical History Allergies/Adverse Reactions: Allergies Allergy/AdvReac Type Severity Reaction Status Date / Time naproxen Allergy Severe Swelling Verified 01/11/18 12:35 soy Allergy Verified 01/11/18 12:35 Sulfa (Sulfonamide Allergy Rash Verified 01/11/18 12:35 Antibiotics) honey bees Allergy Mild Swelling Uncoded 12/21/17 11:47 shrimp Allergy Mild hives, Uncoded 01/11/18 12:35 itching [place]S Allergy Unknown Uncoded 01/11/18 12:35 ants Allergy Uncoded 01/11/18 12:35 seafood Allergy get sick Uncoded 01/11/18 12:35 Home Medications: Ambulatory Orders Lisinopril [Prinivil] 20 mg PO DAILY 12/06/14 Canagliflozin [Invokana] 300 mg PO DAILY 09/26/15 Sitagliptin Phos/Metformin HCl [Janumet 50-1,000 mg Tablet] 1 each PO BID Zolpidem Tartrate [Ambien] 5 mg PO HS PRN 12/25/16 Hydrocortisone 2.5% Topical Cr [Anusol-Hc -] 1 applic TP DAILY PRN #60 gm Docusate Sodium [Colace] 100 mg PO BID PRN #20 capsule 11/22/17 Methocarbamol [Robaxin -] 500 mg PO BID #14 tablet 11/22/17 Lidocaine 2% Viscous Oral/Top [Xylocaine 2% Viscous] 1 ml MM Q6H PRN #1 bottle 12/21/17 Ciprofloxacin HCl [Cipro] 500 mg PO BID 5 Days #10 tablet 01/11/18 Phenazopyridine HCl [Pyridium] 100 mg PO TID 2 Days #6 tablet 01/11/18 Asthma: Yes Cardiac Disorders: Yes (IRREGULAR HEART BEAT, CAD) CVA: No COPD: Yes Diabetes: Yes (NIDDM) GI Disorders: Yes (acid reflux) HTN: Yes Hypercholesterolemia: Yes Psychiatric Problems: Yes (ANXIETY.) Seizures: Yes - Surgical History Abdominal Surgery: Yes (EX LAP- left ovary removed) Appendectomy: No Cardiac Surgery: Yes (CATH,) Cholecystectomy: No Lung Surgery: No Neurologic Surgery: No - Immunization History Td Vaccination: Yes TDAP Vaccination: No Immunization Up to Date: Yes - Suicide/Smoking/Psychosocial Hx Smoking Status: No Smoking History: Never smoked Years of Tobacco Use: 0 Have you smoked in the past 12 months: No Number of Cigarettes Smoked Daily: 0 Cigars Per Day: 0 Hx Alcohol Use: No Drug/Substance Use Hx: No Substance Use Type: None Hx Substance Use Treatment: No Review of Systems - Review of Systems Able to Perform ROS?: Yes Is the patient limited [place] proficient: No Constitutional: No: Chills, Fever, Malaise Respiratory: No: Symptoms reported Cardiac (ROS): No: Symptoms Reported ABD/GI: Yes: See HPI, Other (suprapubic discomfort). No: Abdominal Distended, Abd. Pain w/ defecation, Blood Streaked Bowels, Constipated, Diarrhea, Difficulty Swallowing, Nausea, Poor Appetite, Poor Fluid Intake, Rectal Bleeding , Vomiting, Indigestion, Abdominal cramping, Tarry Stools : Yes: Burning, Dysuria, Frequency, Pain (suprapubic), Urgency Musculoskeletal: No: Back Pain All Other Systems: Reviewed and Negative *Physical Exam - Vital Signs Last Vital Signs Temp Pulse Resp BP Pulse Ox 98.4 F 91 H 18 117/78 98 01/11/18 12:32 01/11/18 12:32 01/11/18 12:32 01/11/18 12:32 01/11/18 12:32 - Physical Exam Comments: 01/11/18 13:22 GENERAL: Well developed, well nourished. Awake and alert. No acute distress. CARDIOVASCULAR: Regular rate and rhythm. No murmurs, rubs, or gallops. Distal pulses are 2+ and symmetric. PULMONARY: No evidence of respiratory distress. Lungs clear to auscultation bilaterally. No wheezing, rales or rhonchi. ABDOMINAL: Soft. Non-tender. Non-distended. No rebound or guarding. No organomegaly. Normoactive bowel sounds. SKIN: Warm and dry. Normal capillary refill. No rashes. No jaundice. NEUROLOGICAL: Alert, awake, appropriate. Gait is normal without ataxia. PSYCHIATRIC: Cooperative. Good eye contact. Appropriate mood and affect. General Appearance: Yes: Nourished, Appropriately Dressed. No: Apparent Distress ED Treatment Course - ADDITIONAL ORDERS Additional order review: Laboratory Results 01/11/18 13:02 Urine Color Ltyellow Urine Appearance Clear Urine pH 5.0 Ur Specific [place] 1.024 Urine Protein Negative Urine Glucose (UA) 3+ H Urine Ketones Negative Urine Blood Negative Urine Nitrite Negative Urine Bilirubin Negative Urine Urobilinogen Negative Ur Leukocyte Esterase Trace Urine WBC (Auto) 5 Urine RBC (Auto) 4 Ur Epithelial Cells Rare Urine Bacteria Rare Urine Mucus Rare Medical Decision Making - Medical Decision Making 01/11/18 13:23 Patient with no sig Past medical history present with complain of three-day history of dysuria, urinary frequency and urgency. UA shows mild leukocytosis. Patient be discharged home on Cipro antibiotics and Pyridium with urology follow -up pending urine culture. *DC/Admit/Observation/Transfer Diagnosis at time of Disposition: Urinary tract infection Qualifiers: Urinary tract infection type: acute cystitis Hematuria presence: without hematuria Qualified Code(s): N30.00 - Acute cystitis without hematuria - Discharge Dispostion Disposition: HOME Condition at time of disposition: Stable Decision to Admit order: No - Prescriptions Prescriptions: Ciprofloxacin HCl [Cipro] 500 mg PO BID 5 Days #10 tablet Phenazopyridine HCl [Pyridium] 100 mg PO TID 2 Days #6 tablet - Referrals Referrals: Donte Sanderson MD [Primary Care Provider] - Ghulam Mancini MD [Staff Physician] - - Patient Instructions Printed Discharge Instructions: DI for Urinary Tract Infection (UTI) Additional Instructions: Take medications as prescribed. Follow-up with preferred urology if symptoms persist for more than 3 days. You'll be contacted with urine culture results - Post Discharge Activity
== END 2018-01-11 13:35 | disposition home or self-care (01) ==
LOC: JERFT 12:28
DX: N30.00 Acute cystitis without hematuria (principal); I25.10 Atherosclerotic heart disease of native coronary artery without angina pectoris; Z98.61 Coronary angioplasty status; I10 Essential (primary) hypertension; E11.9 Type 2 diabetes mellitus without complications; Z79.84 Long term (current) use of oral hypoglycemic drugs; E78.00 Pure hypercholesterolemia, unspecified; F41.9 Anxiety disorder, unspecified; J44.9 Chronic obstructive pulmonary disease, unspecified; J45.909 Unspecified asthma, uncomplicated; Z86.69 Personal history of other diseases of the nervous system and sense organs
CPT/HCPCS: 81003; 81015; 87086; 87186; 99281-25

== ENCOUNTER 2018-03-06 08:19 | Emergency (ER) | payer MEDICARE ==
[2018-03-06 08:29] VITALS: BP 109/57; PULSE 90; TEMP 98; BMI 24.5
[2018-03-06] MEDS ORDERED: ACETAMINOPHEN 500 MG TABLET (FP) PO ONE (09:15)
[2018-03-06 09:24] LABS: URINE APPEARANCE CLEAR; URINE BILIRUBIN NEGATIVE (<2.0 mg/dL); URINE COLOR STRAW; URINE GLUCOSE (UA) 3+ (NEGATIVE); URINE KETONE NEGATIVE (NEGATIVE); URINE LEUK ESTERASE 2+ (NEGATIVE); URINE NITRITE NEGATIVE (NEGATIVE); URINE PROTEIN NEGATIVE (NEGATIVE); URINE UROBILINOGEN NEGATIVE mg/dL (0.2-1.0)
--- NOTE | 2018-03-06 09:25 | PDOC ---
History of Present Illness - General Chief Complaint: Pain, Acute Stated Complaint: PAIN Time Seen by Provider: 03/06/18 09:01 History Source: Patient Exam Limitations: No Limitations - History of Present Illness Travel History: No Initial Comments: 03/06/18 10:17 Patient came with concerns about urinary frequency, burning with urine, some back pain and general malaise. States had fevers and chills a couple days ago and nauseated. Was concerned may have been something contaminated but has not had any emesis with the nausea. States suffered from urinary tract infection is been treated with Cipro but "I'm not sure it Works" Timing/Duration: reports: getting worse, intermittent Quality: reports: mild, moderate, cramping, sharpness Abdominal Pain Onset Location: reports: generalized abdomen Pain Radiation: reports: flank Past History - Travel Traveled outside of the country in the last 30 days: No Close contact w/someone who was outside of country & ill: No - Past Medical History Allergies/Adverse Reactions: Allergies Allergy/AdvReac Type Severity Reaction Status Date / Time naproxen Allergy Severe Swelling Verified 03/06/18 08:30 soy Allergy Verified 03/06/18 08:30 Sulfa (Sulfonamide Allergy Rash Verified 03/06/18 08:30 Antibiotics) honey bees Allergy Mild Swelling Uncoded 03/06/18 08:30 shrimp Allergy Mild hives, Uncoded 03/06/18 08:30 itching WALNUTS Allergy Unknown Uncoded 03/06/18 08:30 ants Allergy Uncoded 03/06/18 08:30 seafood Allergy get sick Uncoded 03/06/18 08:30 Home Medications: Ambulatory Orders Lisinopril [Prinivil] 20 mg PO DAILY 12/06/14 Canagliflozin [Invokana] 300 mg PO DAILY 09/26/15 Sitagliptin Phos/Metformin HCl [Janumet 50-1,000 mg Tablet] 1 each PO BID Zolpidem Tartrate [Ambien] 5 mg PO HS PRN 12/25/16 Fluconazole [Diflucan] 150 mg PO ONCE #1 tablet 03/06/18 Nitrofurantoin Monohyd/M-Cryst [Macrobid -] 100 mg PO BID #14 capsule 03/06/18 Asthma: Yes Cardiac Disorders: Yes (IRREGULAR HEART BEAT, CAD) CVA: No COPD: Yes Diabetes: Yes (NIDDM) GI Disorders: Yes (acid reflux) HTN: Yes Hypercholesterolemia: Yes Psychiatric Problems: Yes (ANXIETY.) Seizures: Yes - Surgical History Abdominal Surgery: Yes (EX LAP- left ovary removed) Appendectomy: No Cardiac Surgery: Yes (CATH,) Cholecystectomy: No Lung Surgery: No Neurologic Surgery: No - Immunization History Td Vaccination: Yes TDAP Vaccination: No Immunization Up to Date: Yes - Suicide/Smoking/Psychosocial Hx Smoking Status: No Smoking History: Never smoked Years of Tobacco Use: 0 Have you smoked in the past 12 months: No Number of Cigarettes Smoked Daily: 0 Cigars Per Day: 0 Information on smoking cessation initiated: No Hx Alcohol Use: No Drug/Substance Use Hx: No Substance Use Type: None Hx Substance Use Treatment: No Abd/GI Specific PMHX - Complaint Specific PMHX GI Ulcer Disease: No Review of Systems - Review of Systems Able to Perform ROS?: Yes Is the patient limited Chinese proficient: Yes Constitutional: Yes: Symptoms Reported, See HPI, Chills, Fever, Malaise HEENTM: Yes: See HPI, Eye Pain. No: Symptoms Reported ABD/GI: Yes: Symptoms Reported, See HPI, Nausea, Abdominal cramping. No: Vomiting : Yes: Symptoms Reported, See HPI, Burning, Dysuria, Flank Pain Musculoskeletal: Yes: Symptoms Reported, See HPI, Muscle Weakness Integumentary: No: Symptoms Reported Neurological: Yes: Symptoms reported, See HPI, Headache All Other Systems: Reviewed and Negative *Physical Exam - Vital Signs Last Vital Signs Temp Pulse Resp BP Pulse Ox 98.0 F 90 20 109/57 L 98 03/06/18 08:26 03/06/18 08:26 03/06/18 08:26 03/06/18 08:26 03/06/18 08:26 - Physical Exam General Appearance: Yes: Nourished, Appropriately Dressed, Apparent Distress, Mild Distress HEENT: positive: FAVIAN, Normal ENT Inspection, TMs Normal, Pharynx Normal Neck: positive: Supple. negative: Tender, Lymphadenopathy (R) Respiratory/Chest: positive: Lungs Clear, Normal Breath Sounds. negative: Wheezing Gastrointestinal/Abdominal: positive: Normal Bowel Sounds, Tender (tenderness, no rebound or guarding, no masses palpated, no chest or CVA tenderness.), Soft. negative: Flat, Distended, Guarding, Rebound, Tenderness Musculoskeletal: positive: Normal Inspection. negative: CVA Tenderness Extremity: positive: Normal Capillary Refill, Normal Inspection, Normal Range of Motion. negative: Tender Integumentary: positive: Normal Color, Dry, Pale Neurologic: positive: slip laster II-XII NML intact, Fully Oriented, Alert, Normal Mood/ Affect, Normal Response, Motor Strength 5/5 Moderate Sedation - Procedure Monitoring Vital Signs: Procedure Monitoring Vital Signs Temperature 98.0 F 03/06/18 08:26 Pulse Rate 90 03/06/18 08:26 Respiratory Rate 20 03/06/18 08:26 Blood Pressure 109/57 L 03/06/18 08:26 O2 Sat by Pulse Oximetry (%) 98 03/06/18 08:26 Progress Note - Progress Note Progress Note: Urinary tract infection, will treat with Macrodantin patient states has used Cipro in the past and feels is not improving. Also sent dose of Diflucan as patient states that was terribly from yeast infections with antibiotic use. Will follow-up with Dr. Feliciano next week for reevaluation *DC/Admit/Observation/Transfer Diagnosis at time of Disposition: Urinary tract infection Qualifiers: Urinary tract infection type: acute cystitis Hematuria presence: without hematuria Qualified Code(s): N30.00 - Acute cystitis without hematuria - Discharge Dispostion Disposition: HOME Condition at time of disposition: Stable Decision to Admit order: No - Prescriptions Prescriptions: Nitrofurantoin Monohyd/M-Cryst [Macrobid -] 100 mg PO BID #14 capsule - Referrals Referrals: Donte Sanderson MD [Primary Care Provider] - - Patient Instructions Printed Discharge Instructions: DI for Urinary Tract Infection (UTI) Additional Instructions: Rest, drink lots of fluids: Teas, water, soups Avoid contact with others until fevers and symptoms resolved Lots of handwashing and good hygiene Continue [id number] medications for symptomatic relief Tylenol or Motrin for fever and pain Continue all of antibiotics until completed Followup with private physician in one week for repeat urinalysis/reevaluation Return to emergency department for worsened symptoms, fevers, dehydration - Post Discharge Activity
[2018-03-06] MEDS ORDERED: ACETAMINOPHEN 500 MG TABLET (FP) ONE (09:27)
[2018-03-06 10:11] LABS: EPI CELLS RARE /HPF (FEW)
== END 2018-03-06 10:22 | disposition home or self-care (01) ==
LOC: JERFT 08:19
DX: N30.00 Acute cystitis without hematuria (principal); I25.10 Atherosclerotic heart disease of native coronary artery without angina pectoris; I10 Essential (primary) hypertension; Z98.61 Coronary angioplasty status; E78.00 Pure hypercholesterolemia, unspecified; J44.9 Chronic obstructive pulmonary disease, unspecified; J45.909 Unspecified asthma, uncomplicated; K21.9 Gastro-esophageal reflux disease without esophagitis
CPT/HCPCS: 81003; 81015; 87086; 99281-25

== ENCOUNTER 2018-06-03 11:45 | Emergency (ER) | payer MEDICARE, OTHER ==
[2018-06-03 11:50] VITALS: BP 109/67; PULSE 92; TEMP 98.6; BMI 22.9
[2018-06-03] MEDS ORDERED: ACETAMINOPHEN 500 MG TABLET (FP) PO ONE (12:30)
--- NOTE | 2018-06-03 12:32 | PDOC ---
History of Present Illness - General Chief Complaint: Back Pain Stated Complaint: LOWER BACK PAIN, VAGINAL BURNING Time Seen by Provider: 06/03/18 12:14 - History of Present Illness Initial Comments: 06/03/18 12:31 58-year-old female presents for evaluation of back pain without radicular symptoms dysuria 3 days. Back pain she states is been going on for months. No loss of bowel bladder function or saddle paresthesias. No systemic symptoms. Past History - Past Medical History Allergies/Adverse Reactions: Allergies Allergy/AdvReac Type Severity Reaction Status Date / Time naproxen Allergy Severe Swelling Verified 06/03/18 11:51 soy Allergy Verified 06/03/18 11:51 Sulfa (Sulfonamide Allergy Rash Verified 06/03/18 11:51 Antibiotics) honey bees Allergy Mild Swelling Uncoded 06/03/18 11:51 shrimp Allergy Mild hives, Uncoded 06/03/18 11:51 itching WALNUTS Allergy Unknown Uncoded 06/03/18 11:51 ants Allergy Uncoded 06/03/18 11:51 seafood Allergy get sick Uncoded 06/03/18 11:51 Home Medications: Ambulatory Orders Lisinopril [Prinivil] 20 mg PO DAILY 12/06/14 Canagliflozin [Invokana] 300 mg PO DAILY 09/26/15 Sitagliptin Phos/Metformin HCl [Janumet 50-1,000 mg Tablet] 1 each PO BID Zolpidem Tartrate [Ambien] 5 mg PO HS PRN 12/25/16 Cyclobenzaprine HCl [Flexeril 10 mg] 10 mg PO HS PRN #10 tablet 06/03/18 Cyclobenzaprine HCl [Flexeril 10 mg] 10 mg PO HS PRN #10 tablet 06/03/18 Asthma: Yes Cardiac Disorders: Yes (IRREGULAR HEART BEAT, CAD) CVA: No COPD: Yes Diabetes: Yes (NIDDM) GI Disorders: Yes (acid reflux) HTN: Yes Hypercholesterolemia: Yes Psychiatric Problems: Yes (ANXIETY.) Seizures: Yes - Surgical History Abdominal Surgery: Yes (EX LAP- left ovary removed) Appendectomy: No Cardiac Surgery: Yes (CATH,) Cholecystectomy: No Lung Surgery: No Neurologic Surgery: No - Immunization History Td Vaccination: Yes TDAP Vaccination: No Immunization Up to Date: Yes - Suicide/Smoking/Psychosocial Hx Smoking Status: No Smoking History: Never smoked Years of Tobacco Use: 0 Have you smoked in the past 12 months: No Number of Cigarettes Smoked Daily: 0 Cigars Per Day: 0 Information on smoking cessation initiated: No Hx Alcohol Use: No Drug/Substance Use Hx: No Substance Use Type: None Hx Substance Use Treatment: No Review of Systems - Review of Systems Constitutional: No: Fever : Yes: See HPI, Burning, Dysuria Musculoskeletal: Yes: Back Pain *Physical Exam - Vital Signs Last Vital Signs Temp Pulse Resp BP Pulse Ox 98.6 F 92 H 19 109/67 98 06/03/18 11:48 06/03/18 11:48 06/03/18 11:48 06/03/18 11:48 06/03/18 11:48 - Physical Exam Comments: 06/03/18 12:31 HEAD: NC/AT EYES: Conjuntiva clear Lumbar spine skin color and temperature are normal thoracic spine skin color and temperature are normal. No midline tenderness. Mild(drastic and lumbar musculature tenderness. No real palpable spasm 5 out of 5 strength in bilateral lower extremities and upper extremity is without gross sensorimotor deficits. She is neurovascularly intact. MS: Full ROM in all joints without edema NEUROLOGIC: No gross sensory or motor deficits, NVID SKIN: Normal color and temperature no lesions or rashes Moderate Sedation - Procedure Monitoring Vital Signs: Procedure Monitoring Vital Signs Temperature 98.6 F 06/03/18 11:48 Pulse Rate 92 H 06/03/18 11:48 Respiratory Rate 19 06/03/18 11:48 Blood Pressure 109/67 06/03/18 11:48 O2 Sat by Pulse Oximetry (%) 98 06/03/18 11:48 Medical Decision Making - Medical Decision Making 06/03/18 13:08 No UTI, I will refer patient back to [facility]. She denies any discharge or itching she just has dysuria. Pelvic exam was not done. She has ALLERGIES to naproxen I am hesitant to give her any Toradol in the emergency room. She states she is receiving an injection before which is helped her however I will defer that to her primary care physician. I will give her prescription for Flexeril for her back pain with spine surgery follow-up as well as follow-up with [facility]. She is unhappy with these plans *DC/Admit/Observation/Transfer Diagnosis at time of Disposition: Back pain, Dysuria - Discharge Dispostion Disposition: HOME Condition at time of disposition: Stable Decision to Admit order: No - Referrals Referrals: Donte Sanderson MD [Primary Care Provider] - Maged Victor MD [Staff Physician] - Grisel Oh MD [Staff Physician] - - Patient Instructions Printed Discharge Instructions: DI for Dysuria -- Adult, Low Back Pain, DI for Low Back Pain Additional Instructions: Return to the emergency room for worsening symptoms follow-up with [facility] for your dysuria as well as spine surgery fear back pain. I've ordered you a muscle relaxer. Its one tablet before bedtime and will make you sleepy. Please take the medication as directed. Follow-up with spine surgery and [facility] in one to 2 days for further evaluation and treatment options. - Post Discharge Activity
[2018-06-03] MEDS ORDERED: ACETAMINOPHEN 500 MG TABLET (FP) ONE (12:40)
[2018-06-03 12:41] LABS: URINE APPEARANCE CLEAR; URINE BILIRUBIN NEGATIVE (<2.0 mg/dL); URINE COLOR STRAW; URINE GLUCOSE (UA) 3+ (NEGATIVE); URINE KETONE NEGATIVE (NEGATIVE); URINE LEUK ESTERASE NEGATIVE (NEGATIVE); URINE NITRITE NEGATIVE (NEGATIVE); URINE PROTEIN NEGATIVE (NEGATIVE); URINE UROBILINOGEN NEGATIVE mg/dL (0.2-1.0)
== END 2018-06-03 13:22 | disposition home or self-care (01) ==
LOC: JERFT 11:45
DX: R30.0 Dysuria (principal); M54.9 Dorsalgia, unspecified; E11.9 Type 2 diabetes mellitus without complications; I10 Essential (primary) hypertension; F41.9 Anxiety disorder, unspecified; E78.00 Pure hypercholesterolemia, unspecified; J44.9 Chronic obstructive pulmonary disease, unspecified
CPT/HCPCS: 81003; 87086; 99281-25

== ENCOUNTER 2019-10-07 09:25 | Emergency (ER) | payer OTHER ==
[2019-10-07 09:41] VITALS: BMI 23.8
[2019-10-07] MEDS ORDERED: SODIUM CHLORIDE 1,000 ML IV STA ×2 (10:06→11:15)
[2019-10-07 10:16] LABS: BASO % 0.4 % (0-2.0); EOS % 0.6 % (0-4.5); HEMOGLOBIN 14.1 GM/dL (10.7-15.3); LYMPH % 27.5 % (8-40); MCH 30.1 pg (25.7-33.7); MCHC 33.5 g/dl (32.0-36.0); MEAN CELL VOLUME 89.8 fl (80-96); MEAN PLT VOLUME 6.8 fl (7.5-11.1); MONO % 12.3 % (3.8-10.2); NEUT % 59.2 % (42.8-82.8); PLATELET COUNT 165 K/MM3 (134-434); RBC 4.68 M/mm3 (3.60-5.2); RDW 13.3 % (11.6-15.6); WHITE BLOOD COUNT 4.1 K/mm3 (4.0-10.0)
[2019-10-07 10:37] LABS: INR 0.94 (0.83-1.09); PROTHROMBIN TIME (PATIENT) 11.1 SEC (9.7-13.0)
[2019-10-07 10:43] LABS: ALBUMIN 4.1 g/dl (3.4-5.0); ALK PHOS 54 U/L (45-117); ANION GAP 6 MMOL/L (8-16); BILIRUBIN,TOTAL 0.7 mg/dL (0.2-1); BLOOD UREA NITROGEN 17.8 mg/dL (7-18); CALCIUM 9.8 mg/dL (8.5-10.1); CHLORIDE 104 mmol/L (98-107); CO2 27 mmol/L (21-32); CREATININE 0.8 mg/dL (0.55-1.3); GLUCOSE,RANDOM 163 mg/dL (74-106); POTASSIUM 4.2 mmol/L (3.5-5.1); SGOT/AST 38 U/L (15-37); SGPT/ALT 56 U/L (13-61); SODIUM 137 mmol/L (136-145); TOT PROT 7.9 g/dl (6.4-8.2)
--- NOTE | 2019-10-07 10:54 | PDOC ---
History of Present Illness <Ivet Parrsih - Last Filed: 10/07/19 20:50> <Emery Perez - Last Filed: 10/08/19 13:42> - General Chief Complaint: Pain Stated Complaint: ABD.PAIN/ DIARRHEA Time Seen by Provider: 10/07/19 09:35 Past History - Medical History Asthma: Yes Cardiac Disorders: Yes (IRREGULAR HEART BEAT, CAD) CVA: No COPD: Yes Diabetes: Yes (NIDDM) GI Disorders: Yes (acid reflux) HTN: Yes Hypercholesterolemia: Yes Psychiatric Problems: Yes (ANXIETY.) Seizures: Yes - Surgical History Abdominal Surgery: Yes (EX LAP- left ovary removed) Appendectomy: No Cardiac Surgery: Yes (CATH,) Cholecystectomy: No Lung Surgery: No Neurologic Surgery: No - Immunization History Td Vaccination: Yes TDAP Vaccination: No Immunization Up to Date: Yes - Psycho-Social/Smoking History Smoking Status: No Smoking History: Never smoked Years of Tobacco Use: 0 Have you smoked in the past 12 months: No Number of Cigarettes Smoked Daily: 0 Cigars Per Day: 0 Information on smoking cessation initiated: No - Substance Abuse Hx (Audit-C & DAST Scrn) How often the patient has a drink containing alcohol: Never Score: In Men: 4 or > Positive; In Women: 3 or > Positive: 0 Screen Result (Pos requires Nsg. Audit-10AR): Negative In the last yr the pt used illegal drug/Rx for NonMed reason: No Score: Yes response is considered Positive: 0 Screen Result (Positive result requires Nsg. DAST-10): Negative <Ivet Parrish - Last Filed: 10/07/19 20:50> <Emery Perez - Last Filed: 10/08/19 13:42> - Medical History Allergies/Adverse Reactions: Allergies Allergy/AdvReac Type Severity Reaction Status Date / Time naproxen Allergy Severe Swelling Verified 10/07/19 09:56 soy Allergy Verified 10/07/19 09:56 Sulfa (Sulfonamide Allergy Rash Verified 10/07/19 09:56 Antibiotics) honey bees Allergy Mild Swelling Uncoded 10/07/19 09:56 shrimp Allergy Mild hives, Uncoded 10/07/19 09:56 itching WALNUTS Allergy Unknown Uncoded 10/07/19 09:56 ants Allergy Uncoded 10/07/19 09:56 seafood Allergy get sick Uncoded 10/07/19 09:56 Home Medications: Ambulatory Orders Lisinopril [Prinivil] 20 mg PO DAILY 12/06/14 Canagliflozin [Invokana] 300 mg PO DAILY 09/26/15 Sitagliptin Phos/Metformin HCl [Janumet 50-1,000 mg Tablet] 1 each PO BID 12/23/16 Zolpidem Tartrate [Ambien] 5 mg PO HS PRN 12/25/16 Cyclobenzaprine HCl [Flexeril 10 mg] 10 mg PO HS PRN #10 tablet 06/03/18 Cyclobenzaprine HCl [Flexeril 10 mg] 10 mg PO HS PRN #10 tablet 06/03/18 Cyclobenzaprine HCl [Flexeril 10 mg] 10 mg PO HS PRN #10 tablet 06/03/18 Amox-Tr/K Cl [Augmentin - 875Mg Tablet] 1 tab PO BID #20 tablet 10/07/19 Fluticasone Prop 0.05% Nasal [Flonase -] 1 - 2 spray NS DAILY #1 spray.pump 10/07/19 Review of Systems - Review of Systems Able to Perform ROS?: Yes Comments:: 10/07/19 10:22 CONSTITUTIONAL: Present: generalized weakness Absent: fever, chills, diaphoresis, generalized weakness, malaise, loss of appetite HEENT: Absent: rhinorrhea, nasal congestion, throat pain, throat swelling, difficulty swallowing, mouth swelling, ear pain, eye pain, visual Changes CARDIOVASCULAR: Present: chest discomfort Absent: chest pain, loss of consciousness, palpitations, irregular heart rate, peripheral edema RESPIRATORY: Present: shortness of breath Absent: cough, dyspnea with exertion, orthopnea, wheezing, stridor, hemoptysis GASTROINTESTINAL: Absent: abdominal pain, abdominal distension, nausea, vomiting, diarrhea, constipation, melena, hematochezia GENITOURINARY: Absent: dysuria, frequency, urgency, hesitancy, hematuria, flank pain, genital pain MUSCULOSKELETAL: Absent: myalgia, arthralgia, joint swelling SKIN: Absent: rash, itching, pallor HEMATOLOGIC/IMMUNOLOGIC: Absent: easy bleeding, easy bruising, lymphadenopathy, frequent infections ENDOCRINE: Absent: unexplained weight gain, unexplained weight loss, heat intolerance, cold intolerance NEUROLOGIC: Present: lightheaded Absent: headache, focal weakness or paresthesias, dizziness, unsteady gait, seizure, mental status changes, bladder or bowel incontinence PSYCHIATRIC: Absent: anxiety, depression, suicidal or homicidal ideation, hallucinations. Is the patient limited Guyanese proficient: No <FrancoisIvte - Last Filed: 10/07/19 20:50> *Physical Exam - Vital Signs Last Vital Signs Temp Pulse Resp BP Pulse Ox 98.8 F 93 H 17 139/85 97 10/07/19 09:28 10/07/19 09:28 10/07/19 09:28 10/07/19 09:28 10/07/19 09:28 - Physical Exam 10/07/19 10:54 GENERAL: Well developed, well nourished. Awake and alert. No acute distress. HEENT: Normocephalic, atraumatic. PERRLA, EOMI. No conjunctival pallor. Sclera are non- icteric. Moist mucous membranes. Oropharynx is clear. NECK: Supple. Full ROM. No JVD. Carotid pulses 2+ and symmetric, without bruits. No thyromegaly. No lymphadenopathy. CARDIOVASCULAR: Regular rate and rhythm. No murmurs, rubs, or gallops. Distal pulses are 2+ and symmetric. PULMONARY: No evidence of respiratory distress. Lungs clear to auscultation bilaterally. No wheezing, rales or rhonchi. ABDOMINAL: Diffuse abdominal discomfort without focal findings. Soft. Non-tender. Non- distended. No rebound or guarding. No organomegaly. Normoactive bowel sounds. MUSCULOSKELETAL Normal range of motion at all joints. No bony deformities or tenderness. No CVA tenderness. EXTREMITIES: No cyanosis. No clubbing. No edema. No calf tenderness. SKIN: Warm and dry. Normal capillary refill. No rashes. No jaundice. NEUROLOGICAL: Alert, awake, appropriate. Cranial nerves 2-12 intact. No deficits to light touch and temperature in face, upper extremities and lower extremities. No motor deficits in the in face, upper extremities and lower extremities. Normoreflexic in the upper and lower extremities. Normal speech. Toes are down-going bilaterally. Gait is normal without ataxia. PSYCHIATRIC: Cooperative. Good eye contact. Appropriate mood and affect. <Ivet Parrish - Last Filed: 10/07/19 20:50> - Vital Signs Last Vital Signs Temp Pulse Resp BP Pulse Ox 98.0 F 86 19 145/69 99 10/07/19 14:37 10/07/19 14:37 10/07/19 14:37 10/07/19 14:37 10/07/19 14:37 <Emery Perez - Last Filed: 10/08/19 13:42> ED Treatment Course - LABORATORY CBC & Chemistry Diagram: 10/07/19 09:45 10/07/19 09:45 - ADDITIONAL ORDERS Additional order review: 10/07/19 09:45 RBC 4.68 MCV 89.8 MCHC 33.5 RDW 13.3 MPV 6.8 L D Neutrophils % 59.2 Lymphocytes % 27.5 Monocytes % 12.3 H Eosinophils % 0.6 Basophils % 0.4 - RADIOLOGY Radiology Studies Ordered: Category Date Time Status CHEST PA & LAT [RAD] Stat Radiology 10/07/19 09:58 Ordered <Ivet Parrish - Last Filed: 10/07/19 20:50> - LABORATORY CBC & Chemistry Diagram: 10/07/19 09:45 10/07/19 09:45 - ADDITIONAL ORDERS Additional order review: 10/07/19 10:00 Urine Culture - Preliminary Urine - Urine Clean Catch Presumptive Mssa (Pbp2a Neg) 10/07/19 09:45 RBC 4.68 MCV 89.8 MCHC 33.5 RDW 13.3 MPV 6.8 L D Neutrophils % 59.2 Lymphocytes % 27.5 Monocytes % 12.3 H Eosinophils % 0.6 Basophils % 0.4 - Medications Given in the ED: ED Medications Discontinued Medications Generic Name Dose Route Start Last Admin Trade Name Teodoro PRN Reason Stop Dose Admin Sodium Chloride 1,000 mls @ 1,000 mls/hr 10/07/19 10:06 10/07/19 10:08 Normal Saline - IV 10/07/19 11:05 1,000 mls/hr ASDIR STA Administration Sodium Chloride 1,000 mls @ 1,000 mls/hr 10/07/19 11:15 10/07/19 11:42 Normal Saline - IV 10/07/19 12:14 1,000 mls/hr ASDIR STA Administration Meclizine HCl 50 mg 10/07/19 11:15 10/07/19 11:31 Antivert - PO 10/07/19 11:16 50 mg ONCE ONE Administration <Emery Perez - Last Filed: 10/08/19 13:42> Medical Decision Making - Medical Decision Making 10/07/19 11:56 The patient is a 59-year-old female with past medical history of coronary artery disease, diabetes, fibromyalgia, asthma, presents to the ER today for abdominal pain, diarrhea and lightheadedness. She states her symptoms started 4 days ago after walking outside. She also admits to associated muscle cramps. She states that when she stands she feels lightheaded and "not feeling right". She notes she has mild abdominal cramping that changes in positions and that she has had a diarrhea movement for the last 2 days. She states she has some mild chest pressure and shortness of breath. Denies fevers, chills, constipation, palpitations, nausea, vomiting and urinary symptoms. A/P: Abdominal pain/diarrhea On exam patient has diffuse abdominal discomfort without focal deficits. Rest of exam is relatively unremarkable. Patient notes that she feels uncomfortable and woozy when she stands. Based on her symptoms and when the symptoms started, possible dehydration versus systemic symptoms. Broad work-up ordered. Lab work is relatively unremarkable. No evidence of anemia, no leukocytosis. Electrolytes within normal limits. Troponin negative EKG: Rate 83 bpm, normal sinus rhythm. Normal intervals and axis. No acute ST- T wave changes overall normal ECG. 10/07/19 13:[address] ordered, shows an acute ethmoid sinusitis. No acute intracranial pathology. Patient reports feeling better after meclizine and 2 L of fluid. Suspect patient's lightheadedness is due to acute sinusitis. She also notes that she now has right-sided ear pain for 4 days. We will treat empirically with Augmentin. Advised patient to take probiotics and eat a brat diet to help with the diarrhea as well. No abdominal pain on reexam. Discharge home with strict return precautions and primary care follow-up. I discussed the physical exam findings, ancillary test results and final diagnoses with the patient. I answered all of the patient's questions. The patient was satisfied with the care received and felt comfortable with the discharge plan and treatment plan. The Patient agrees to follow up with the primary care physician/specialist within 24-72 hours. Return precautions were given. <Ivet Parrish - Last Filed: 10/07/19 20:50> - Medical Decision Making 10/08/19 13:42 I reviewed the case of the mid-level practitioner and was available for consultation while in the emergency department <Emery Perez - Last Filed: 10/08/19 13:42> Discharge - Discharge Information Problems reviewed: Yes - Admission No <Ivet Parrish - Last Filed: 10/07/19 20:50> <Emery Perez - Last Filed: 10/08/19 13:42> - Discharge Information Clinical Impression/Diagnosis: Sinusitis Qualifiers: Sinusitis location: ethmoidal Chronicity: chronic Qualified Code(s): J32.2 - Chronic ethmoidal sinusitis Condition: Stable Disposition: HOME - Additional Discharge Information Prescriptions: Amox-Tr/K Cl [Augmentin - 875Mg Tablet] 1 tab PO BID #20 tablet Fluticasone Prop 0.05% Nasal [Flonase -] 1 - 2 spray NS DAILY #1 spray.pump - Follow up/Referral Referrals: Donte Sanderson MD [Primary Care Provider] - - Patient Discharge Instructions Patient Printed Discharge Instructions: DI for Sinusitis Additional Instructions: You were seen for your lightheadedness and diarrhea today. Your lab work was all normal. I suspect the lightheadedness is from a sinus infection as seen on your CAT scan. Please take the Augmentin twice a day for 10 days to help with the symptoms. Given you have diarrhea, please eat probiotics and a binding diet including plain rice, toast and applesauce. Please drink plenty of fluids. Follow-up with your primary care doctor within 1 week for further management and treatment of your symptoms. Return to the ER for worsening dizziness/lightheadedness, shortness of breath, abdominal pain or if you have any changes in her symptoms - Post Discharge Activity
[2019-10-07] MEDS ORDERED: MECLIZINE HCL 25 MG TABLET (FP) PO ONE (11:15)
[2019-10-07] MEDS ORDERED: MECLIZINE HCL 25 MG TABLET (FP) ONE (11:19)
--- NOTE | 2019-10-07 12:10 | EKG ---
Test Reason : Blood Pressure : / mmHG Vent. Rate : 083 BPM Atrial Rate : 083 BPM P-R Int : 116 ms QRS Dur : 072 ms QT Int : 334 ms P-R-T Axes : 061 048 057 degrees QTc Int : 392 ms NORMAL SINUS RHYTHM NORMAL ECG WHEN COMPARED WITH ECG OF 26-SEP-2015 08:17, NO SIGNIFICANT CHANGE WAS FOUND Confirmed by IGLESIA KERR MD ([id number]) on 10/07/2019 12:10:11 PM Referred By: Confirmed By:IGLESIA KERR MD
[2019-10-07 13:08] LABS: URINE APPEARANCE CLEAR; URINE BILIRUBIN NEGATIVE (NEGATIVE); URINE COLOR YELLOW; URINE GLUCOSE (UA) 3+ (NEGATIVE); URINE KETONE NEGATIVE (NEGATIVE); URINE LEUK ESTERASE NEGATIVE (NEGATIVE); URINE NITRITE NEGATIVE (NEGATIVE); URINE PROTEIN NEGATIVE (NEGATIVE); URINE UROBILINOGEN 0.2 mg/dL (0.2-1.0)
[2019-10-07 14:38] VITALS: BP 145/69; PULSE 86; TEMP 98
== END 2019-10-07 14:39 | disposition home or self-care (01) ==
LOC: JER 09:25
PROC: 3E0337Z Introduction of Electrolytic and Water Balance Substance into Peripheral Vein, Percutaneous Approach (ICD-10-PCS; principal; 2019-10-07)
DX: J32.2 Chronic ethmoidal sinusitis (principal)
CPT/HCPCS: 36415; 70450-TC; 71046-TC-FY; 80053; 81003; 82550; 84484; 85025; 85610; 87086; 87186; 93005; 93010; 99285-25

== ENCOUNTER 2019-12-01 08:18 | Emergency (ER) | payer OTHER ==
[2019-12-01 08:23] VITALS: BMI 23.8
[2019-12-01 09:31] LABS: BASO % 0.7 % (0-2.0); EOS % 0.4 % (0-4.5); HEMATOCRIT 40.8 % (32.4-45.2); HEMOGLOBIN 14.1 GM/dL (10.7-15.3); LYMPH % 23.4 % (8-40); MCH 30.9 pg (25.7-33.7); MCHC 34.6 g/dl (32.0-36.0); MEAN CELL VOLUME 89.5 fl (80-96); MEAN PLT VOLUME 6.9 fl (7.5-11.1); NEUT % 62.5 % (42.8-82.8); PLATELET COUNT 178 K/MM3 (134-434); RBC 4.56 M/mm3 (3.60-5.2); RDW 13.4 % (11.6-15.6); WHITE BLOOD COUNT 6.8 K/mm3 (4.0-10.0)
[2019-12-01 09:35] LABS: EPI CELLS 17 /uL (0-25.1); HYALINE CASTS 0 /uL (0-3.1); URINE APPEARANCE CLEAR; URINE BACTERIA 15 /uL (0-1359); URINE BILIRUBIN NEGATIVE (NEGATIVE); URINE COLOR YELLOW; URINE GLUCOSE (UA) 3+ (NEGATIVE); URINE KETONE NEGATIVE (NEGATIVE); URINE LEUK ESTERASE 1+ (NEGATIVE); URINE NITRITE NEGATIVE (NEGATIVE); URINE PROTEIN NEGATIVE (NEGATIVE); URINE RBC 5 /uL (0-23.9); URINE UROBILINOGEN 0.2 mg/dL (0.2-1.0); URINE WBC 114 /uL (0-25.8)
[2019-12-01 10:04] LABS: ALBUMIN 4.5 g/dl (3.4-5.0); BILIRUBIN,TOTAL 0.8 mg/dL (0.2-1); BLOOD UREA NITROGEN 15.9 mg/dL (7-18); CREATININE 0.7 mg/dL (0.55-1.3); POTASSIUM 3.8 mmol/L (3.5-5.1); TOT PROT 8.2 g/dl (6.4-8.2)
--- NOTE | 2019-12-01 10:24 | PDOC ---
Documentation entered by Carolina Ramsey SCRIBE, acting as scribe for Kushal Shane MD. Kushal Shane MD: This documentation has been prepared by the hosseinibeBraulio Lincy, SCRIBE, under my direction and personally reviewed by me in its entirety. I confirm that the documentation accurately reflects all work, treatment, procedures, and medical decision making performed by me. History of Present Illness - General Chief Complaint: Pain, Acute Stated Complaint: STOMACH PAIN Time Seen by Provider: 12/01/19 08:40 History Source: Patient Exam Limitations: No Limitations - History of Present Illness Initial Comments: 12/01/19 09:38 The patient is a 59-year-old female with a past medical history significant for CAD, HTD, HLD, DM II who presents to the emergency department with few weeks of lower abdominal pain. The patient describes the pain as crampy and uncomfortable, associated with pain with urination and bowel movement and straining to have a bowel movement and passing flatulence. The patient reports associated symptoms of constipation, states she has a bowel movement every other 3-4 days, which is unusual for the patient. The patient reports she had a small bowel movement this morning, it was hard in consistency. The patient reports following up with Dr. Moise about a week ago for the symptoms. The patient reports she was prescribed stomach pills. Per Pharmacy/Dr. Moise, the patient was prescribed Prilosec (20mg) and metronidazole (250mg QID, 14 day supply) for suspected bacterial growth. The patient reports noncompliance with flagyl secondary to nausea. The patient reports following up at urgent care about a month ago for the pain, had an u/s done which was significant for something wrong with the spleen. Denies fever or chills. The patient recalled her last colonoscopy was about 10 years ago. Allergies: Naproxen (diarrhea) and Sulfa (edema) Past surgical history: Tonsillectomy and L oophorectomy Social history: Denies the use of tobacco or alcohol. PCP: Dr. Sanderson GI: Dr. Moise. Past History - Medical History Allergies/Adverse Reactions: Allergies Allergy/AdvReac Type Severity Reaction Status Date / Time naproxen Allergy Severe Swelling Verified 10/07/19 09:56 soy Allergy Verified 10/07/19 09:56 Sulfa (Sulfonamide Allergy Rash Verified 10/07/19 09:56 Antibiotics) honey bees Allergy Mild Swelling Uncoded 10/07/19 09:56 shrimp Allergy Mild hives, Uncoded 10/07/19 09:56 itching WALNUTS Allergy Unknown Uncoded 10/07/19 09:56 ants Allergy Uncoded 10/07/19 09:56 seafood Allergy get sick Uncoded 10/07/19 09:56 Home Medications: Ambulatory Orders Lisinopril [Prinivil] 20 mg PO DAILY 12/06/14 Canagliflozin [Invokana] 300 mg PO DAILY 09/26/15 Sitagliptin Phos/Metformin HCl [Janumet 50-1,000 mg Tablet] 1 each PO BID 12/23/16 Fluticasone Prop 0.05% Nasal [Flonase -] 1 - 2 spray NS DAILY #1 spray.pump 10/07/19 Ciprofloxacin [Cipro (Restricted To Id)] 500 mg PO BID #10 tablet 12/01/19 Asthma: Yes Cardiac Disorders: Yes (IRREGULAR HEART BEAT, CAD) CVA: No COPD: Yes Diabetes: Yes (NIDDM) GI Disorders: Yes (acid reflux) HTN: Yes Hypercholesterolemia: Yes Psychiatric Problems: Yes (ANXIETY.) Seizures: Yes - Surgical History Abdominal Surgery: Yes (EX LAP- left ovary removed) Appendectomy: No Cardiac Surgery: Yes (CATH,) Cholecystectomy: No Lung Surgery: No Neurologic Surgery: No - Reproductive History Is Patient Now?: No - Immunization History Td Vaccination: Yes TDAP Vaccination: No Immunization Up to Date: Yes - Psycho-Social/Smoking History Smoking Status: No Smoking History: Never smoked Years of Tobacco Use: 0 Have you smoked in the past 12 months: No Number of Cigarettes Smoked Daily: 0 Cigars Per Day: 0 Information on smoking cessation initiated: No - Substance Abuse Hx (Audit-C & DAST Scrn) How often the patient has a drink containing alcohol: Never Score: In Men: 4 or > Positive; In Women: 3 or > Positive: 0 Screen Result (Pos requires Nsg. Audit-10AR): Negative In the last yr the pt used illegal drug/Rx for NonMed reason: No Score: Yes response is considered Positive: 0 Screen Result (Positive result requires Nsg. DAST-10): Negative Review of Systems - Review of Systems Able to Perform ROS?: Yes Comments:: 12/01/19 10:18 CONSTITUTIONAL: No fever, no chills, no fatigue EYES: No visual changes ENT: No ear pain, no sore throat CARDIOVASCULAR: No chest pain, no palpitations RESPIRATORY: No cough, no SOB GI: +abdominal pain, constipation. no nausea, no vomiting, no diarrhea GENITOURINARY: No dysuria, no frequency, no hematuria MUSKULOSKELETAL: No back pain, no joint pain, no myalgias SKIN: No rash NEURO: No headache *Physical Exam - Vital Signs Last Vital Signs Temp Pulse Resp BP Pulse Ox 98.6 F 86 16 153/72 97 12/01/19 08:20 12/01/19 08:20 12/01/19 08:20 12/01/19 08:20 12/01/19 08:20 - Physical Exam 12/01/19 10:18 CONSTITUTIONAL: Well-appearing; well-nourished; in no apparent distress HEAD: Normocephalic; atraumatic EYES: PERRL; EOM intact ENMT: External appears normal; normal oropharynx NECK: Supple; non-tender; no cervical lymphadenopathy CARD: Normal S1, S2; no murmurs, rubs, or gallops RESP: Normal chest excursion with respiration; breath sounds clear and equal bilaterally; no wheezes, rhonchi, or rales ABD: +mild periumbilical and left lower quadrant tenderness, no guarding or rebound. Soft, non-distended; no palpable organomegaly, no palpable hernias EXT: Normal ROM in all four extremities; non-tender to palpation; distal pulses intact SKIN: Warm, dry, no rash NEURO: No focal neurological deficiencies. ED Treatment Course - LABORATORY CBC & Chemistry Diagram: 12/01/19 09:12/01/19 09:20 Medical Decision Making - Medical Decision Making 12/01/19 10:19 Patient is a 59-year-old female with multiple committees who presents to the ER with several weeks of nonspecific lower abdominal discomfort urinary urgency and dysuria. In the ER, patient is awake and alert, well-appearing, with minimal periumbilical and left-sided discomfort on deep palpation without guarding or rebound. CBC reveals no evidence of significant leukocytosis. Urinalysis reveals pyuria with presence of epithelial cells and bacteria. KUB reveals large amount of retained stool but no evidence of dilated loops of small bowel or air-fluid levels. Patient tolerates p.o. I discussed her case with Dr. Moise. He is informed me that he evaluated the patient 6 days previously for suspected constipation and bacterial overgrowth syndrome. Patient was prescribed omeprazole and Flagyl which she could not tolerate. Patient was also put on a high-fiber diet and provided stool softeners which she has not taken. I will treat the patient's urinary tract infection with Cipro. Will advise patient to stop Flagyl given the intolerance. Will refer patient for continuous GI evaluation as an outpatient. Discharge - Discharge Information Problems reviewed: Yes Clinical Impression/Diagnosis: Abdominal pain Qualifiers: Abdominal location: unspecified location Qualified Code(s): R10.9 - Unspecified abdominal pain Urinary tract infection Qualifiers: Urinary tract infection type: site unspecified Hematuria presence: with hematuria Qualified Code(s): N39.0 - Urinary tract infection, site not specified; R31.9 - Hematuria, unspecified Constipation Qualifiers: Constipation type: unspecified constipation type Qualified Code(s): K59.00 - Constipation, unspecified Condition: Stable Disposition: HOME - Follow up/Referral Referrals: Donte Sanderson MD [Primary Care Provider] - Ignacio Lawler DO [Staff Physician] - - Patient Discharge Instructions Patient Printed Discharge Instructions: DI for Abdominal Pain-Adult, DI for Urinary Tract Infection (UTI), DI for Constipation Additional Instructions: You have been provided name of band straightener for second opinion please you can take MiraLAX for constipation. Follow-up with gastroenterology for further evaluation of your symptoms. Return immediately for severe pain, persistent nausea and vomiting. - Post Discharge Activity
[2019-12-01 11:44] VITALS: BP 117/81; PULSE 81; TEMP 97.9
== END 2019-12-01 11:43 | disposition home or self-care (01) ==
LOC: JER 08:18
DX: R10.9 Unspecified abdominal pain (principal); R31.9 Hematuria, unspecified; K59.00 Constipation, unspecified
CPT/HCPCS: 36415; 74018-TC-FY; 80053; 81003; 85025; 87086; 87186; 99284-25

== ENCOUNTER 2020-10-20 15:55 | Emergency (ER) | payer OTHER ==
[2020-10-20 16:14] VITALS: BP 109/76; PULSE 97; TEMP 98.1; BMI 22.9
[2020-10-20] MEDS ORDERED: FLUCONAZOLE 150 MG TABLET PO ONE ×2 (16:54→17:00)
[2020-10-20 17:58] LABS: URINE APPEARANCE CLEAR; URINE BILIRUBIN NEGATIVE (NEGATIVE); URINE COLOR YELLOW; URINE GLUCOSE (UA) 3+ (NEGATIVE); URINE KETONE TRACE (NEGATIVE); URINE LEUK ESTERASE NEGATIVE (NEGATIVE); URINE NITRITE NEGATIVE (NEGATIVE); URINE PROTEIN NEGATIVE (NEGATIVE); URINE UROBILINOGEN 0.2 mg/dL (0.2-1.0)
== END 2020-10-20 18:53 | disposition home or self-care (01) ==
LOC: JERFT 15:55
DX: R30.0 Dysuria (principal)
CPT/HCPCS: 81003; 87086; 99283-25

== ENCOUNTER 2020-10-30 13:55 | Emergency (ER) | payer OTHER ==
[2020-10-30 14:03] VITALS: BP 106/71; PULSE 95; TEMP 98.1; BMI 23.3
[2020-10-30 16:33] LABS: URINE APPEARANCE CLEAR; URINE BILIRUBIN NEGATIVE (NEGATIVE); URINE COLOR YELLOW; URINE GLUCOSE (UA) 3+ (NEGATIVE); URINE KETONE NEGATIVE (NEGATIVE); URINE LEUK ESTERASE NEGATIVE (NEGATIVE); URINE NITRITE NEGATIVE (NEGATIVE); URINE PROTEIN NEGATIVE (NEGATIVE); URINE UROBILINOGEN 0.2 mg/dL (0.2-1.0)
[2020-10-30] MEDS ORDERED: KETOROLAC TROMETHAMINE 60 MG/2 ML VIAL IM ONE (16:41)
[2020-10-30] MEDS ORDERED: KETOROLAC TROMETHAMINE 60 MG/2 ML VIAL ONE (16:46)
== END 2020-10-30 17:30 | disposition home or self-care (01) ==
LOC: JER 13:55
PROC: 3E0233Z Introduction of Anti-inflammatory into Muscle, Percutaneous Approach (ICD-10-PCS; principal; 2020-10-30)
DX: R30.0 Dysuria (principal)
CPT/HCPCS: 81003; 87086; 99284-25

== ENCOUNTER 2022-01-27 13:05 | Emergency (ER) | payer OTHER ==
[2022-01-27 13:18] VITALS: BP 122/80; PULSE 94; RESP 18; TEMP 97.9; BMI 22.9
[2022-01-27] MEDS ORDERED: ALBUTEROL SO4 HFA INHALER IH ONE ×2 (15:53→16:48)
[2022-01-27 16:04] LABS: EPI CELLS 4 /uL (0-25.1); HYALINE CASTS 1 /uL (0-3.1); URINE APPEARANCE CLEAR; URINE BACTERIA >9,000 /uL (0-1359); URINE BILIRUBIN NEGATIVE (NEGATIVE); URINE COLOR YELLOW; URINE GLUCOSE (UA) 3+ (NEGATIVE); URINE KETONE NEGATIVE (NEGATIVE); URINE LEUK ESTERASE TRACE (NEGATIVE); URINE NITRITE POSITIVE (NEGATIVE); URINE PROTEIN NEGATIVE (NEGATIVE); URINE RBC 15 /uL (0-23.9); URINE UROBILINOGEN 0.2 mg/dL (0.2-1.0); URINE WBC 155 /uL (0-25.8)
[2022-01-27] MEDS ORDERED: MAG HYDROX/AL HYDROX/SIMETH 30 ML UNIT-DOSE CUP PO ONE (16:47)
[2022-01-27] MEDS ORDERED: SENNOSIDES 8.6MG TABLET (FP) PO SCH ×3 (16:59→22:00)
[2022-01-27] MEDS ORDERED: MAG HYDROX/AL HYDROX/SIMETH 30 ML UNIT-DOSE CUP ONE (17:00)
== END 2022-01-27 17:47 | disposition home or self-care (01) ==
LOC: JER 13:05
DX: N12 Tubulo-interstitial nephritis, not specified as acute or chronic (principal)
CPT/HCPCS: 81003; 87086; 87186; 99283-25

== ENCOUNTER 2023-02-08 15:17 | Emergency (ER) | payer OTHER ==
[2023-02-08 15:29] VITALS: RESP 18; BMI 23.8
[2023-02-08] MEDS ORDERED: ONDANSETRON 4 MG/2 ML VIAL IVPUSH ONE (16:04)
[2023-02-08] MEDS ORDERED: SODIUM CHLORIDE 0.9% 500 ML INFUS.BAG IV ONE (16:05)
[2023-02-08] MEDS ORDERED: ACETAMINOPHEN 1000 MG/100 ML BAG IVPB ONE (16:05)
[2023-02-08] MEDS ORDERED: MECLIZINE HCL 25 MG TABLET (FP) PO ONE (16:05)
[2023-02-08] MEDS ORDERED: ONDANSETRON 4 MG/2 ML VIAL ONE (16:26)
[2023-02-08] MEDS ORDERED: ACETAMINOPHEN INJECTION 100 ML IVPB ONE (16:26)
[2023-02-08] MEDS ORDERED: MECLIZINE HCL 25 MG TABLET (FP) ONE (16:26)
[2023-02-08] MEDS ORDERED: LIDOCAINE 5% TOPICAL PATCH TP ONE (16:44)
[2023-02-08 17:12] LABS: HEMOGLOBIN 15.2 GM/dL (10.7-15.3); LYMPH % 29.8 % (8-40); MCH 31.4 pg (25.7-33.7); MCHC 35.3 g/dl (32.0-36.0); MEAN CELL VOLUME 89.2 fl (80-96); MEAN PLT VOLUME 7.4 fl (7.5-11.1); MONO % 15.1 % (3.8-10.2); NEUT % 53.1 % (42.8-82.8); PLATELET COUNT 157 10^3/uL (134-434); RBC 4.82 M/mm3 (3.60-5.2); RDW 12.9 % (11.6-15.6); WHITE BLOOD COUNT 4.7 K/mm3 (4.0-10.0)
[2023-02-08 17:21] LABS: INR 1.04 (0.83-1.09); PROTHROMBIN TIME (PATIENT) 12.1 SEC (9.7-13.0)
[2023-02-08 17:23] LABS: ACTIVATED PTT 44.7 SECONDS (25.2-36.5)
[2023-02-08 17:34] LABS: POTASSIUM 4.4 mmol/L (3.5-5.1)
[2023-02-08 17:36] LABS: ALBUMIN 4.6 g/dl (3.4-5.0); BLOOD UREA NITROGEN 16.8 mg/dL (7-18); MAGNESIUM 2.4 mg/dL (1.8-2.4)
[2023-02-08 17:39] LABS: CREATININE 0.9 mg/dL (0.55-1.3)
[2023-02-08 17:41] LABS: BILIRUBIN,TOTAL 1.1 mg/dL (0.2-1); TOT PROT 8.1 g/dl (6.4-8.2)
[2023-02-08] MEDS ORDERED: LIDOCAINE 4% PATCH TP ONE (18:08)
[2023-02-08 18:59] VITALS: BP 107/60; PULSE 90; TEMP 98.4
[2023-02-08] MEDS ORDERED: LIDOCAINE PATCH REMOVAL MC SCH (22:00)
== END 2023-02-08 19:21 | disposition home or self-care (01) ==
LOC: JER 15:17
PROC: 3E033NZ Introduction of Analgesics, Hypnotics, Sedatives into Peripheral Vein, Percutaneous Approach (ICD-10-PCS; principal; 2023-02-08)
PROC: 3E033GC Introduction of Other Therapeutic Substance into Peripheral Vein, Percutaneous Approach (ICD-10-PCS; 2023-02-08)
DX: R42 Dizziness and giddiness (principal); M54.2 Cervicalgia
CPT/HCPCS: 36415; 70450-TC; 70496-TC; 70498-TC; 80053; 83735; 84439; 84443; 84484; 85025; 85610; 85730; 93005; 93010; 96374; 96375; 99285-25

== ENCOUNTER 2023-11-13 13:15 | Emergency (ER) | payer OTHER ==
[2023-11-13 13:23] VITALS: BP 127/80; PULSE 97; RESP 18; TEMP 98.2; BMI 22.9
[2023-11-13] MEDS: NYSTATIN 500,000 UNITS/5 ML SUSPENSION PO ONE (14:45)
== END 2023-11-13 14:53 | disposition home or self-care (01) ==
LOC: JERFT 13:15
DX: R07.0 Pain in throat (principal); B37.0 Candidal stomatitis
CPT/HCPCS: 99283-25

== ENCOUNTER 2024-10-25 17:18 | Emergency (ER) | payer OTHER ==
[2024-10-25 17:39] VITALS: BP 142/75; PULSE 95; RESP 18; TEMP 98.1; BMI 22.9
[2024-10-25 18:54] LABS: ABSOLUTE IMMATURE GRANULOCYTES 0.01 x10^3/uL (0.0-0.031); EOSINOPHIL % 0.6 % (0.7-5.8); EOSINOPHILS # 0.03 x10^3/uL (0.04-0.36); MEAN CELL VOLUME 89.5 fl (79.4-94.8); MONOCYTE % 13.0 % (4.7-12.5); RDW 11.9 % (12.4-16.4)
[2024-10-25 18:56] LABS: BASOPHILS # 0.02 x10^3/uL (0.01-0.08); IMMATURE PLATELET FRACTION # 2.50 x10^3/uL; MCHC 33.7 g/dl (32.2-35.5); MEAN PLT VOLUME 9.2 fl (9.4-12.3); MONOCYTE # 0.63 x10^3/uL (0.24-0.86)
[2024-10-25 19:19] LABS: GLUCOSE,RANDOM 192.0 mg/dL (74-106); TOT PROT 8.4 g/dl (6.4-8.2)
[2024-10-25 19:20] LABS: CO2 27.0 mmol/L (21-32)
[2024-10-25 19:22] LABS: ALK PHOS 57.0 U/L (40-150)
[2024-10-25 19:24] LABS: SGOT/AST 201.0 U/L (5-34); SGPT/ALT 350.0 U/L (0-55)
[2024-10-25 19:25] LABS: CREATININE 0.53 mg/dL (0.55-1.3)
[2024-10-25 19:42] LABS: HCV DIAGNOSTIC IN-HOUSE W/RFLX NON-REACTIVE (NONREACTIVE); HIV INTERPRETATION NEGATIVE (NEGATIVE)
== END 2024-10-25 19:50 | disposition home or self-care (01) ==
LOC: JER 17:18
DX: K64.9 Unspecified hemorrhoids (principal)
CPT/HCPCS: 36415; 80053; 82272; 84484; 85025; 86803; 86850; 86900; 86901; 87389; 93005; 93010; 99284-25